=== PATIENT | female | born 1965 | race Caucasian/White ===

== ENCOUNTER 2022-09-15 15:33 | Emergency (ER) | payer MEDICARE ==
[~2022-09-15 15:33] MED LIST: AMIT75TA2 PO; QUET400T PO
[2022-09-15] MEDS ORDERED: LACTATED RINGERS 1,000 ML IV SCH ×2 (16:30→17:45)
[2022-09-15 16:32] LABS: BASOPHILS % (AUTO) 0 % (0-10); EOSINOPHILS % (AUTO) 0 % (0-10); HEMATOCRIT 42 % (35-52); HEMOGLOBIN 13.7 g/dL (11.5-16.0); LYMPHOCYTES # (AUTO) 2.6 10^3/uL (1.0-4.0); LYMPHOCYTES % (AUTO) 31 % (12-44); MEAN CORPUSCULAR HEMOGLOBIN 31 pg (25-34); MEAN CORPUSCULAR HGB CONC 32 g/dL (32-36); MEAN CORPUSCULAR VOLUME 97 fL (80-99); MONOCYTES # (AUTO) 0.8 10^3/uL (0.0-1.0); MONOCYTES % (AUTO) 9 % (0-12); NEUTROPHILS # (AUTO) 5.1 10^3/uL (1.8-7.8); NEUTROPHILS % (AUTO) 59 % (42-75); PLATELET COUNT 239 10^3/uL (130-400); WHITE BLOOD COUNT 8.6 10^3/uL (4.3-11.0)
--- NOTE | 2022-09-15 16:35 | ED General ---
General Chief Complaint: General Problems/Pain Stated Complaint: FALL Nursing Triage Note: PT TO [facility] BY [facility] WITH C/O FALL TODAY AND WEAKNESS FOR 2-3 DAYS. PT STATES HER LEGS ARE WEAK AND ARENT WORKING Source of Information: Patient Exam Limitations: No Limitations History of Present Illness Date Seen by Provider: Sep 15, 2022 Time Seen by Provider: 16:34 Initial Comments To ER by EMS from home with reports of a fall today. She is had increased weakness for 2 to 3 days but she has had general weakness in both lower extremities, falling with difficulty getting up off of the floor because of the weakness for about 6 months. She follows with ZOEY Cordoba, at [facility]. She has not addressed these issues with him. Timing/Duration: Getting Worse Severity: Moderate Associated Systoms: Denies Symptoms Allergies and Home Medications Allergies Coded Allergies: No Allergy Information Available (Unverified , 02/24/22) Patient Home Medication List Home Medication List Reviewed: Yes Amitriptyline HCl (Amitriptyline HCl) 75 Mg Tablet, 75 MG PO HS Prescribed by: SEFERINO DAVIS on 02/24/22 112 Quetiapine Fumarate (Seroquel) 400 Mg Tablet, 800 MG PO HS Prescribed by: SEFERINO DAVIS on 02/24/22 112 Review of Systems Review of Systems Constitutional: see HPI EENTM: see HPI Respiratory: no symptoms reported Cardiovascular: no symptoms reported Genitourinary: no symptoms reported Musculoskeletal: no symptoms reported Skin: no symptoms reported Psychiatric/Neurological: No Symptoms Reported Hematologic/Lymphatic: No Symptoms Reported Past Zhwdjic-Knzsxm-Pdofly Hx Patient Social History Tobacco Use?: Yes Tobacco type used: Cigarettes Substance use?: No Alcohol Use?: No Pt feels they are or have been: No Immunizations Up To Date Influenza Vaccine Up-to-Date: No; Not Current First/Initial COVID19 Vaccinat: 2020 Second COVID19 Vaccination Brandon: 2020 COVID19 Vaccine 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 oz. kg; 26.00 BMI Method: General Appearance: No Apparent Distress, WD/WN, Other (lethargic, difficulty keeping eyes open. ) Eyes: Bilateral Eye Normal Inspection, Bilateral Eye PERRL, Bilateral Eye EOMI HEENT: PERRL/EOMI, Other (Dry mucous membranes) Neck: Full Range of Motion, Normal Inspection Respiratory: No Accessory Muscle Use, No Respiratory Distress Cardiovascular: Regular Rate, Rhythm, Normal Peripheral Pulses Gastrointestinal: Normal Bowel Sounds, Non Tender, Soft Extremity: Normal Capillary Refill, Normal Inspection, Other (Bilateral lower extremities are without swelling, normal color, warm, +1 in strength dorsalis pedis pulse bilaterally.) Neurologic/Psychiatric: Alert, Oriented x3 Skin: Normal Color, Warm/Dry Progress/Results/Core Measures Suspected Sepsis SIRS Temperature: Pulse: 82 Respiratory Rate: 20 Laboratory Tests 09/15/22 16:13: White Blood Count 8.6 Blood Pressure 91 /72 Mean: 78 Laboratory Tests 09/15/22 16:13: Creatinine 0.76, Platelet Count 239, Total Bilirubin 0.2 Results/Orders Lab Results Laboratory Tests Test 09/15/22 16:13 Range/Units White Blood Count 8.6 4.3-11.0 10^3/uL Red Blood Count 4.38 3.80-5.11 10^6/uL Hemoglobin 13.7 11.5-16.0 g/dL Hematocrit 42 35-52 % Mean Corpuscular Volume 97 80-99 fL Mean Corpuscular Hemoglobin 31 25-34 pg Mean Corpuscular Hemoglobin Concent 32 32-36 g/dL Red Cell Distribution Width 13.4 10.0-14.5 % Platelet Count 239 130-400 10^3/uL Mean Platelet Volume 10.0 9.0-12.2 fL Immature Granulocyte % (Auto) 1 % Neutrophils (%) (Auto) 59 42-75 % Lymphocytes (%) (Auto) 31 12-44 % Monocytes (%) (Auto) 9 0-12 % Eosinophils (%) (Auto) 0 0-10 % Basophils (%) (Auto) 0 0-10 % Neutrophils # (Auto) 5.1 1.8-7.8 10^3/uL Lymphocytes # (Auto) 2.6 1.0-4.0 10^3/uL Monocytes # (Auto) 0.8 0.0-1.0 10^3/uL Eosinophils # (Auto) 0.0 0.0-0.3 10^3/uL Basophils # (Auto) 0.0 0.0-0.1 10^3/uL Immature Granulocyte # (Auto) 0.1 0.0-0.1 10^3/uL Sodium Level 136 135-145 MMOL/L Potassium Level 4.5 3.6-5.0 MMOL/L Chloride Level 103 98-107 MMOL/L Carbon Dioxide Level 24 21-32 MMOL/L Anion Gap 9 5-14 MMOL/L Blood Urea Nitrogen 15 7-18 MG/DL Creatinine 0.76 0.60-1.30 MG/DL Estimat Glomerular Filtration Rate 91 BUN/Creatinine Ratio 20 Glucose Level 118 H 70-105 MG/DL Calcium Level 8.6 8.5-10.1 MG/DL Corrected Calcium 8.9 8.5-10.1 MG/DL Total Bilirubin 0.2 0.1-1.0 MG/DL Aspartate Amino Transf (AST/SGOT) 20 5-34 U/L Alanine Aminotransferase (ALT/SGPT) 10 0-55 U/L Alkaline Phosphatase 71 40-136 U/L Total Protein 7.0 6.4-8.2 GM/DL Albumin 3.6 3.2-4.5 GM/DL My Orders Orders - BRIDGETT SENIOR APRN Cbc With Automated Diff (09/15/22 16:16) Comprehensive Metabolic Panel (09/15/22 16:16) Ua Culture If Indicated (09/15/22 16:16) Drug Screen Stat (Urine) (09/15/22 16:16) Ed Iv/Invasive Line Start (09/15/22 16:16) Ct Head/Cervical Spine Wo (09/15/22 16:16) Lactated Ringers (Lr 1000 Ml Iv Solution (09/15/22 16:30) Lactated Ringers (Lr 1000 Ml Iv Solution (09/15/22 17:45) Vital Signs/I&O 09/15/22 15:33 Temp 36.3 Pulse 82 Resp 20 B/P (MAP) 91/72 (78) Pulse Ox 94 Capillary Refill : Blood Pressure Mean: 78 Departure Communication (Admissions) 1723-lethargic, blood pressure 81/56. IV established, 1 L fluid bolus infusing. She complains of frequent falls. She is on a long list of medications most of which are sedating. I think this is a combination of hypotension from volume depletion with an extensive list of sedating medications contributing to her frequent falls and weakness. 1826-BP up to 112/76. Alert, will dc to home. Impression Primary Impression: Frequent falls Additional Impressions: Medication side effects Dehydration Disposition: HOME, SELF-CARE Condition: Stable Departure-Patient Inst. Decision time for Depature: 17:24 Referrals: NO,LOCAL PHYSICIAN (PCP/Family) Primary Care Physician Patient Instructions: Dehydration, Adult ED, Dealing with Low Blood Pressure from the Drugs You Take, Dealing with Drowsiness from the Drugs You Take Add. Discharge Instructions: 1. You need to follow-up with your primary care provider to discuss weaning back on the dosages of some of your medications as many if not all of them are sedating. Return to ER for any concerns. Increase water intake. All discharge instructions reviewed with patient and/or family. Voiced understanding. BRIDGETT SENIOR APRN Sep 15, 2022 16:35
[2022-09-15 16:37] LABS: ALBUMIN 3.6 GM/DL (3.2-4.5); POTASSIUM 4.5 MMOL/L (3.6-5.0)
[2022-09-15 16:39] LABS: CALCIUM 8.6 MG/DL (8.5-10.1)
[2022-09-15 16:42] LABS: BILIRUBIN,TOTAL 0.2 MG/DL (0.1-1.0)
[2022-09-15 16:44] LABS: CREATININE SERUM 0.76 MG/DL (0.60-1.30)
--- NOTE | 2022-09-15 17:00 | Diagnostic Imaging Report ---
PROCEDURE: CT head and CT cervical spine without contrast. TECHNIQUE: Multiple contiguous axial images were obtained through the brain and cervical spine without the use of intravenous contrast. Sagittal and coronal reformations through the cervical spine were then performed. Auto Exposure Controls were utilized during the CT exam to meet ALARA standards for radiation dose reduction. INDICATION: Head and neck pain after two falls today. Trauma to head. COMPARISON: None. FINDINGS: CT HEAD: The ventricles and cortical sulci are age appropriate. There is no midline shift or mass effect. No acute intracranial hemorrhage is seen. There is no CT evidence of acute territorial ischemia. The calvarium appears intact. Visualized paranasal sinuses are clear. CT CERVICAL SPINE: There is anterior fusion of the cervical spine from C4 to C7. There is bony fusion from C5 to C7 across the disc spaces, but there does not appear to be bony bridging across C4-C5. No hardware fracture or loosening is seen. There is grade 1 anterolisthesis at C7-T1, appears to be due to degenerative change. There are severe degenerative changes at C3-C4. There is marked facet arthropathy at C2-C3 and C3-C4 on the left. No acute fracture is seen. No bony fragments or hyperdense fluid collections are seen in the spinal canal. There does appear to be spinal canal stenosis at C4-C5. There are mild emphysematous changes in the lung apices. Soft tissues about the cervical spine demonstrate no acute abnormality. IMPRESSION: 1. No acute intracranial hemorrhage or calvarium fracture. 2. No acute fracture is seen in the cervical spine. 3. Anterior fusion of C4 to C7. No hardware loosening or fracture is seen. 4. Multilevel degenerative changes, most pronounced at C3-C4. Dictated by: Dictated on workstation # [id number]
[2022-09-15 18:27] VITALS: BP 112/77
[2022-09-15 18:33] LABS: BILIRUBIN,URINE NEGATIVE (NEGATIVE); CLARITY,URINE CLEAR; COLOR,URINE YELLOW; GLUCOSE, URINE (UA) NEGATIVE (NEGATIVE); KETONES,URINE NEGATIVE (NEGATIVE); LEUKOCYTE ESTERASE ,URINE NEGATIVE (NEGATIVE); NITRITE,URINE NEGATIVE (NEGATIVE); PH,URINE 6.5 (5-9); PROTEIN,URINE NEGATIVE (NEGATIVE)
[2022-09-15 18:42] LABS: BACTERIA,URINE NEGATIVE /HPF; SQUAMOUS EPITHELIAL CELL,UR RARE /HPF
[2022-09-15 18:50] LABS: AMPHETAMINE SCREEN, URINE NEGATIVE (NEGATIVE); BARBITURATE SCREEN URINE NEGATIVE (NEGATIVE); BENZODIAZEPINES SCREEN URINE NEGATIVE (NEGATIVE); CANNABINOID SCREEN, URINE NEGATIVE (NEGATIVE); COCAINE SCREEN URINE NEGATIVE (NEGATIVE); METHADONE STAT NEGATIVE (NEGATIVE); OPIATE SCREEN URINE NEGATIVE (NEGATIVE); OXYCODONE STAT NEGATIVE (NEGATIVE); PROPOXYPHENE STAT NEGATIVE (NEGATIVE); TRICYCLIC ANTIDEPRESSANTS SCRE POSITIVE (NEGATIVE)
== END 2022-09-15 18:30 | disposition home or self-care (01) ==
LOC: EDUNIT# 15:39 → ER 15:41
DX: E86.0 Dehydration (principal); T50.905A Adverse effect of unspecified drugs, medicaments and biological substances, initial encounter; R29.6 Repeated falls; F17.210 Nicotine dependence, cigarettes, uncomplicated; W19.XXXA Unspecified fall, initial encounter
CPT/HCPCS: 36415; 70450; 72125; 80053; 80306; 81000; 85025

== ENCOUNTER 2022-11-26 07:33 | Inpatient (IN) | payer MEDICARE, MEDICAID ==
[~2022-11-26] VITALS: Ht 167 cm; Wt 94.8 kg
[2022-11-26] MEDS ORDERED: LACTATED RINGERS 1,000 ML IV STA (08:01)
[2022-11-26] MEDS ORDERED: NS IV 1000 ML 1,000 ML IV STA (08:01)
[2022-11-26 08:09] LABS: ABG BASE EXCESS 4.7 MMOL/L (-2.5-2.5); ABG OXYGEN SATURATION 97 % (94-100); ABG PCO2 54 MMHG (35-45); ABG PH 7.36 (7.37-7.43); ABG PO2 79 MMHG (79-93); ABG TCO2 31.3 MMOL/L (21.0-31.0); ALLENS TEST POSITIVE; INSPIRED O2 4 L; PATIENT TEMP 37.3; VENTILATOR NO
--- NOTE | 2022-11-26 08:09 | ED General ---
General Chief Complaint: Altered Mental Status Stated Complaint: AMS Source of Information: Patient, EMS Exam Limitations: Physical Impairments History of Present Illness Date Seen by Provider: Nov 26, 2022 Time Seen by Provider: 07:34 Initial Comments Here by EMS with report of altered mental status. Apparently she was quite weak and not answering questions right this morning. EMS reports blood pressure that was low in the 80s systolic but then 100s systolic. Unsure if the patient has been sick. Reports that she does have dementia. The house smelled of marijuana per EMS. The patient smells of smoke. Patient is answering simple questions and following simple commands. She was noted to be hypoxic in the 80s which did improve with a few liters via nasal cannula per EMS. Patient denies chest pain or abdominal pain and will wake up. She has a's occasional jerking movements of the body. She seems quite confused. Family reports to EMS that she is on medicines but was only able to show a bottle of Seroquel. Timing/Duration: 1-3 Hours Severity: Moderate, Severe Associated Systoms: No Chest Pain, No Nausea/Vomiting, No Shortness of Air; Weakness Allergies and Home Medications Allergies Coded Allergies: No Known Drug Allergies (Unverified , 11/26/22) Patient Home Medication List Home Medication List Reviewed: Yes Amitriptyline HCl (Amitriptyline HCl) 75 Mg Tablet, 75 MG PO HS Prescribed by: SEFERINO DAVIS on 02/24/221121 Quetiapine Fumarate (Seroquel) 400 Mg Tablet, 800 MG PO HS Prescribed by: SEFERINO DAVIS on 02/24/221121 Review of Systems Review of Systems Constitutional: see HPI; No chills, No fever; weakness Unable to complete review of systems due to altered mental status Past Dypgstx-Paxaeb-Yiqrup Hx Patient Social History Tobacco Use?: Yes Substance use?: Unable to obtain Alcohol Use?: Unable to obtain Immunizations Up To Date First/Initial COVID19 Vaccinat: 2020 Second COVID19 Vaccination Brandon: 2020 Past Medical History Surgery/Hospitalization HX: PSYCHIATRIC HX, COPD, NEUROPATHY, CHRONIC PAIN Respiratory: Yes COPD Neurological: Yes Neuropathy Family Medical History Reviewed Nursing Family Hx No Pertinent Family Hx Physical Exam-Suspected Sepsis Physical Exam Vital Signs Vital Signs - First Documented 11/26/22 11:47 FiO2 36 Capillary Refill : Less Than 3 Seconds Height, Weight, BMI Height: '" Weight: lbs. oz. kg; 30.00 BMI Method: General Appearance: Mild Distress, Obese HEENT: Other (Pupils pinpoint at 2 to 3 mm bilateral, equal and sluggish) Neck: Full Range of Motion, Normal Inspection, Non Tender, Supple Respiratory: No Respiratory Distress, Crackles (Few bibasilar crackles.); No Wheezing Cardiovascular: Regular Rate, Rhythm, No Murmur Gastrointestinal: Normal Bowel Sounds, Non Tender, Soft Back: Normal Inspection, No CVA Tenderness Extremity: No Calf Tenderness, No Pedal Edema Neurologic/Psychiatric: Disoriented (Oriented to self,), Motor Weakness, Other (Altered and drowsy. Intermittent muscle twitching throughout the body) Skin: normal color, cool; No rash, No ulcerations Focused Exam Lactate Level 11/26/22 08:07: Lactic Acid Level 1.79 Lactic Acid Level Progress/Results/Core Measures Suspected Sepsis SIRS Temperature: Pulse: 96 Respiratory Rate: 30 Laboratory Tests 11/26/22 08:07: White Blood Count 14.0H Blood Pressure 107 /84 Mean: 92 11/26/22 08:07: Lactic Acid Level 1.79 Laboratory Tests 11/26/22 08:07: Creatinine 0.73, INR Comment 0.9, Platelet Count 237, Total Bilirubin 0.4 Results/Orders Lab Results Laboratory Tests Test 11/26/22 08:02 11/26/22 08:07 11/26/22 08:16 11/26/22 08:34 Range/Units Blood Gas Puncture Site RIGHT RADIAL Blood Gas Patient Temperature 37.3 Arterial Blood pH 7.36 L 7.37-7.43 Arterial Blood Partial Pressure CO2 54 H 35-45 MMHG Arterial Blood Partial Pressure O2 79 79-93 MMHG Arterial Blood HCO3 30 H 23-27 MMOL/L Arterial Blood Total CO2 31.3 H 21.0-31.0 MMOL/L Arterial Blood Oxygen Saturation 97 94-100 % Arterial Blood Base Excess 4.7 H -2.5-2.5 MMOL/L Shaq Test POSITIVE Blood Gas Ventilator Setting NO Blood Gas Inspired Oxygen 4 L White Blood Count 14.0 H 4.3-11.0 10^3/uL Red Blood Count 4.40 3.80-5.11 10^6/uL Hemoglobin 13.6 11.5-16.0 g/dL Hematocrit 41 35-52 % Mean Corpuscular Volume 94 80-99 fL Mean Corpuscular Hemoglobin 31 25-34 pg Mean Corpuscular Hemoglobin Concent 33 32-36 g/dL Red Cell Distribution Width 13.8 10.0-14.5 % Platelet Count 237 130-400 10^3/uL Mean Platelet Volume 9.7 9.0-12.2 fL Immature Granulocyte % (Auto) 1 % Neutrophils (%) (Auto) 82 H 42-75 % Lymphocytes (%) (Auto) 10 L 12-44 % Monocytes (%) (Auto) 8 0-12 % Eosinophils (%) (Auto) 0 0-10 % Basophils (%) (Auto) 0 0-10 % Neutrophils # (Auto) 11.5 H 1.8-7.8 10^3/uL Lymphocytes # (Auto) 1.3 1.0-4.0 10^3/uL Monocytes # (Auto) 1.1 H 0.0-1.0 10^3/uL Eosinophils # (Auto) 0.0 0.0-0.3 10^3/uL Basophils # (Auto) 0.1 0.0-0.1 10^3/uL Immature Granulocyte # (Auto) 0.1 0.0-0.1 10^3/uL Neutrophils % (Manual) 83 % Lymphocytes % (Manual) 11 % Monocytes % (Manual) 5 % Eosinophils % (Manual) 0 % Basophils % (Manual) 1 % Blood Morphology Comment NORMAL Prothrombin Time 13.1 12.2-14.7 SEC INR Comment 0.9 0.8-1.4 Activated Partial Thromboplast Time 29 24-35 SEC Sodium Level 136 135-145 MMOL/L Potassium Level 3.6 3.6-5.0 MMOL/L Chloride Level 98 98-107 MMOL/L Carbon Dioxide Level 28 21-32 MMOL/L Anion Gap 10 5-14 MMOL/L Blood Urea Nitrogen 13 7-18 MG/DL Creatinine 0.73 0.60-1.30 MG/DL Estimat Glomerular Filtration Rate 95 BUN/Creatinine Ratio 18 Glucose Level 109 H 70-105 MG/DL Lactic Acid Level 1.79 0.50-2.00 MMOL/L Calcium Level 9.4 8.5-10.1 MG/DL Corrected Calcium 9.6 8.5-10.1 MG/DL Total Bilirubin 0.4 0.1-1.0 MG/DL Aspartate Amino Transf (AST/SGOT) 21 5-34 U/L Alanine Aminotransferase (ALT/SGPT) 16 0-55 U/L Alkaline Phosphatase 88 40-136 U/L Total Protein 7.5 6.4-8.2 GM/DL Albumin 3.7 3.2-4.5 GM/DL Influenza Type A (RT-PCR) Not Detected Not Detecte Influenza Type B (RT-PCR) Not Detected Not Detecte SARS-CoV-2 RNA (RT-PCR) Not Detected Not Detecte Urine Color YELLOW Urine Clarity CLEAR Urine pH 6.0 5-9 Urine Specific [place] 1.025 H 1.016-1.022 Urine Protein TRACE H NEGATIVE Urine Glucose (UA) NEGATIVE NEGATIVE Urine Ketones TRACE H NEGATIVE Urine Nitrite NEGATIVE NEGATIVE Urine Bilirubin NEGATIVE NEGATIVE Urine Urobilinogen 1.0 < = 1.0 MG/DL Urine Leukocyte Esterase NEGATIVE NEGATIVE Urine RBC (Auto) TRACE-I H NEGATIVE Urine RBC NONE /HPF Urine WBC 2-5 /HPF Urine Squamous Epithelial Cells 0-2 /HPF Urine Crystals NONE /LPF Urine Bacteria TRACE /HPF Urine Casts PRESENT /LPF Urine Hyaline Casts RARE /LPF Urine Granular Casts RARE /LPF Urine Mucus NEGATIVE /LPF Urine Culture Indicated CULTURE PENDING Urine Opiates Screen NEGATIVE NEGATIVE Urine Oxycodone Screen NEGATIVE NEGATIVE Urine Methadone Screen NEGATIVE NEGATIVE Urine Propoxyphene Screen NEGATIVE NEGATIVE Urine Barbiturates Screen NEGATIVE NEGATIVE Ur Tricyclic Antidepressants Screen POSITIVE H NEGATIVE Urine Phencyclidine Screen NEGATIVE NEGATIVE Urine Amphetamines Screen NEGATIVE NEGATIVE Urine Methamphetamines Screen NEGATIVE NEGATIVE Urine Benzodiazepines Screen NEGATIVE NEGATIVE Urine Cocaine Screen NEGATIVE NEGATIVE Urine Cannabinoids Screen POSITIVE H NEGATIVE My Orders Orders - JORDAN FLETCHER MD Arterial Blood Gas (11/26/22 07:55) Cbc With Automated Diff (11/26/22 08:01) Comprehensive Metabolic Panel (11/26/22 08:01) Blood Culture (11/26/22 08:01) Sputum Culture (11/26/22 08:01) Urinalysis (11/26/22 08:01) Urine Culture (11/26/22 08:01) Protime With Inr (11/26/22 08:01) Partial Thromboplastin Time (11/26/22 08:01) Chest 1 View, Ap/Pa Only (11/26/22 08:01) Ed Iv/Invasive Line Start (11/26/22 08:01) Ed Iv/Invasive Line Start (11/26/22 08:01) Vital Signs Adult Sepsis Patie Q15M (11/26/22 08:01) O2 (11/26/22 08:01) Remove Rings In Anticipation O (11/26/22 08:01) Lactic Acid Analyzer (11/26/22 08:01) Influenza A And B By Pcr (11/26/22 08:01) Covid 19 Inhouse Test (11/26/22 08:01) Ns Iv 1000 Ml (Sodium Chloride 0.9%) (11/26/22 08:01) Lactated Ringers (Lr 1000 Ml Iv Solution (11/26/22 08:01) Manual Differential (11/26/22 08:07) Arterial Blood Draw - Obtain (11/26/22 08:02) Catheter(Urinary) Insert & Ass ,15 (11/26/22 08:30) Drug Screen Stat (Urine) (11/26/22 08:30) Ct Angio Chest W (R/O Pe) (11/26/22 09:04) Cefepime Injection (Maxipime Injection) (11/26/22 09:15) Iohexol Injection (Omnipaque 350 Mg/Ml 1 (11/26/22 09:15) Received Contrast (Hold Metformin- Contr (11/26/22 09:15) Ns (Ivpb) (Sodium Chloride 0.9% Ivpb Bag (11/26/22 09:15) Nicotine Patch (Nicoderm Patch) (11/26/22 10:45) Ns Iv 1000 Ml (Sodium Chloride 0.9%) (11/26/22 10:58) Lactated Ringers (Lr 1000 Ml Iv Solution (11/26/22 10:58) Medications Given in ED Current Medications Medications Dose Ordered Sig/Kalee Route Start Time Stop Time Status Last Admin Dose Admin Cefepime HCl 1000 mg/Sodium Chloride 50 ml @ 100 mls/hr ONCE ONCE IV 11/26/22 09:15 11/26/22 09:44 DC 11/26/22 10:09 100 MLS/HR Iohexol 100 ml ONCE ONCE IV 11/26/22 09:15 11/26/22 09:16 DC 11/26/22 09:13 77 ML Sodium Chloride 100 ml ONCE ONCE IV 11/26/22 09:15 11/26/22 09:16 DC 11/26/22 09:13 80 ML Vital Signs/I&O 11/26/22 11/26/22 11/26/22 11/26/22 07:35 07:35 07:35 11:22 Temp 37.3 Pulse 96 75 Resp 30 16 B/P (MAP) 107/84 (92) 98/74 Pulse Ox 91 92 94 O2 Delivery Nasal Cannula Nasal Cannula Nasal Cannula Room Air O2 Flow Rate 3.00 3.00 3.00 3.00 11/26/22 11/26/22 11:43 11:47 Temp 36.9 36.9 Pulse 74 96 Resp 18 B/P (MAP) 120/72 (88) Pulse Ox 94 92 O2 Delivery Nasal Cannula O2 Flow Rate 5.00 FiO2 36 Capillary Refill : Less Than 3 Seconds Progress Note : Progress Note Seen and evaluated. Very difficult IV access. I was able to place a 20-gauge to the left antecubital space via ultrasound guidance with good flush and return. We have initiated sepsis protocol including CBC, CMP, blood cultures, lactic acid, chest x-ray, UA and UDS. We will get COVID and influenza screen. ABG ordered. Oxygen initiated at 3 L via nasal cannula and was increased to 5 L. We will consider BiPAP for concerns for hypercarbia but we will await ABG and sick blood pressures low. 0815: ABG shows CO2 of 54. I do not believe she needs BiPAP at this point. We have initiated normal saline 1 L bolus as well as LR 1 L bolus ordered earlier. O2 saturations greater than 91% currently. Monitor patient. Differential includes pneumonia, viral infection, COPD exacerbation, UTI, toxins including narcotic overdose, electrolyte abnormality, thyroid dysfunction 0843: Further lab review shows pH on ABG at 7.36 (just slightly under normal), CBC shows elevated white count with left shift but normal hemoglobin. Chemistri es reviewed and show normal electrolytes and normal serum creatinine with normal LFTs. Coag panel is normal. Lactic acid is upper limits of normal. UA is essentially within normal limits with no indication of urinary tract infection. We are pending UDS as well as chest x-ray. Monitor patient. 0855: I have reviewed chest x-ray and there is concern for large right-sided lower lobe infiltrate on the chest x-ray on my interpretation. Patient's chemistry shows normal creatinine function. I have verified allergies. We will go ahead and get CT angiogram of the chest to rule out PE as well as better define the infiltrate. This was discussed with patient and family who agree. She is much more talkative now and conversive. She does admit to smoking. She is able to tell her medication history now. Fluids have done significant improvement as well as oxygen. Patient will require admission but we will reassess after CT angiogram. This was discussed with patient and family who agree. We will initiate cefepime 1 g IV now due to history of significant COPD and concerns for pneumonia. 1044: CT scan results reviewed. Patient does have bilateral pneumonia without PE. I did discuss the case with Dr. Cordon, primary care provider on-call for [facility]. We did review current data and findings as well as treatment. He accepts patient for admission to the hospital, inpatient status. He is requesting NicoDerm patch being ordered which I have done. We did discuss patient's long-term chronic pain medicine and she is on oxycodone 10 mg p.o. every 6 hours as needed pain. I discussed that with him and he is okay with me writing for that as well. Bridge orders written. Findings and concerns discussed with patient and family who agree with plan. Diagnostic Imaging Diagonstic Imaging: Xray Plain Films/CT/US/NM/MRI: chest Comments [facility]. [place], [place] NAME: JORGE ALVAREZ [facility] REC#: [id number] PT STATUS: REG ER : 1965 PHYSICIAN: JORDAN FLETCHER MD ADMIT DATE: 11/26/22/ER Draft Date of Exam:11/26/22 CHEST 1 VIEW, AP/PA ONLY INDICATION: Shortness of air. Altered mental status. COMPARISON: None. FINDINGS: A single frontal radiographic view of the chest was obtained and demonstrates moderate consolidative airspace disease within the right lower lung and more patchy airspace opacities of the right upper lung. The left lung is comparatively clear. No large effusion or pneumothorax is seen. The cardiac silhouette and pulmonary vasculature are within normal limits. The osseous structures show no gross acute abnormalities. IMPRESSION: Findings consistent with moderate right-sided infiltrate. Followup to resolution is advised. Dictated on workstation # [id number] Dict: 11/26/2254 Trans: 11/26/22 0858 MARK [id number] Interpreted by: EDMOND FINK MD Electronically signed by: Reviewed: Reviewed by Diagonstic Imaging: CT Plain Films/CT/US/NM/MRI: chest Comments [facility] [place] [place] NAME: JORGE ALVAREZ [facility] REC#: [id number] PT STATUS: REG ER : 1965 PHYSICIAN: JORDAN FLETCHER MD ADMIT DATE: 11/26/22/ER Signed Date of Exam:11/26/22 CT ANGIO CHEST W (R/O PE) INDICATION: Lethargy, hypoxia, and increased O2 demand. Pinpoint pupils are show to react. FINDINGS: The pulmonary arterial branches show no filling defect. No identifiable PE. The aorta is patent, nonaneurysmal, and nonacute. This patient has bilateral pneumonia, greater right. The infiltrates are largely groundglass in attenuation. Findings are consistent with a nonspecific infectious etiology. No pneumothorax. There are minute bilateral pleural effusions, nonloculated. No evidence for empyema or abscess. There are some scattered coronary artery atherosclerotic vascular calcifications. The visualized upper abdomen shows no free fluid, free air, or loculated fluid collection. IMPRESSION: Bilateral pneumonia with minute pleural effusions. No findings of PE or acute aortic pathology. Dictated by: Dictated on workstation # [id number] Dict: 11/26/2240 Trans: 11/26/2259 MARK [id number] Interpreted by: IQRA FAUST Electronically signed by: IQRA FAUST 11/26/2259 Reviewed: Reviewed by Critical Care Note Critical Care Start Time: 07:34 Total Time (minutes) 30 Departure Communication (Admissions) Time/Spoke to Admitting Phy: 10:40 Impression Primary Impression: Bilateral pneumonia Qualified Codes: J18.9 - Pneumonia, unspecified organism Additional Impression: Hypoxia Disposition: ADMITTED INPATIENT Condition: Stable Admissions Decision to Admit Reason: Admit from ER (General) Decision to Admit/Date: Nov 26, 2022 Time/Decision to Admit Time: 10:40 Departure-Patient Inst. Referrals: NO,LOCAL PHYSICIAN (PCP/Family) Primary Care Physician JORDAN FLETCHER MD Nov 26, 2022 08:09
[2022-11-26 08:10] LABS: BASOPHILS # (AUTO) 0.1 10^3/uL (0.0-0.1); BASOPHILS % (AUTO) 0 % (0-10); EOSINOPHILS % (AUTO) 0 % (0-10); HEMATOCRIT 41 % (35-52); HEMOGLOBIN 13.6 g/dL (11.5-16.0); LYMPHOCYTES # (AUTO) 1.3 10^3/uL (1.0-4.0); LYMPHOCYTES % (AUTO) 10 % (12-44); MEAN CORPUSCULAR HEMOGLOBIN 31 pg (25-34); MEAN CORPUSCULAR HGB CONC 33 g/dL (32-36); MEAN CORPUSCULAR VOLUME 94 fL (80-99); MEAN PLATELET VOLUME 9.7 fL (9.0-12.2); MONOCYTES # (AUTO) 1.1 10^3/uL (0.0-1.0); MONOCYTES % (AUTO) 8 % (0-12); NEUTROPHILS # (AUTO) 11.5 10^3/uL (1.8-7.8); NEUTROPHILS % (AUTO) 82 % (42-75); PLATELET COUNT 237 10^3/uL (130-400)
[2022-11-26 08:21] LABS: ALBUMIN 3.7 GM/DL (3.2-4.5); INR 0.9 (0.8-1.4); PROTHROMBIN TIME PATIENT 13.1 SEC (12.2-14.7)
[2022-11-26 08:22] LABS: POTASSIUM 3.6 MMOL/L (3.6-5.0)
[2022-11-26 08:23] LABS: CALCIUM 9.4 MG/DL (8.5-10.1)
[2022-11-26 08:23] LABS: BILIRUBIN,URINE NEGATIVE (NEGATIVE); CLARITY,URINE CLEAR; COLOR,URINE YELLOW; GLUCOSE, URINE (UA) NEGATIVE (NEGATIVE); KETONES,URINE TRACE (NEGATIVE); LEUKOCYTE ESTERASE ,URINE NEGATIVE (NEGATIVE); NITRITE,URINE NEGATIVE (NEGATIVE); PROTEIN,URINE TRACE (NEGATIVE)
[2022-11-26 08:24] LABS: TOTAL PROTEIN 7.5 GM/DL (6.4-8.2)
[2022-11-26 08:26] LABS: BILIRUBIN,TOTAL 0.4 MG/DL (0.1-1.0)
[2022-11-26 08:28] LABS: CREATININE SERUM 0.73 MG/DL (0.60-1.30)
[2022-11-26 08:32] LABS: BACTERIA,URINE TRACE /HPF; GRANULAR CASTS,URINE RARE /LPF; HYALINE CASTS, URINE RARE /LPF; SQUAMOUS EPITHELIAL CELL,UR 0-2 /HPF
[2022-11-26 08:39] LABS: BASOPHILS % (MANUAL) 1 %; EOSINOPHILS % (MANUAL) 0 %; LYMPHOCYTES % (MANUAL) 11 %; MONOCYTES % (MANUAL) 5 %; NEUTROPHILS % (MANUAL) 83 %; RBC MORPH NORMAL
[2022-11-26 08:49] LABS: AMPHETAMINE SCREEN, URINE NEGATIVE (NEGATIVE); BARBITURATE SCREEN URINE NEGATIVE (NEGATIVE); BENZODIAZEPINES SCREEN URINE NEGATIVE (NEGATIVE); CANNABINOID SCREEN, URINE POSITIVE (NEGATIVE); COCAINE SCREEN URINE NEGATIVE (NEGATIVE); METHADONE STAT NEGATIVE (NEGATIVE); OPIATE SCREEN URINE NEGATIVE (NEGATIVE); OXYCODONE STAT NEGATIVE (NEGATIVE); PROPOXYPHENE STAT NEGATIVE (NEGATIVE); TRICYCLIC ANTIDEPRESSANTS SCRE POSITIVE (NEGATIVE)
--- NOTE | 2022-11-26 08:58 | Diagnostic Imaging Report ---
INDICATION: Shortness of air. Altered mental status. COMPARISON: None. FINDINGS: A single frontal radiographic view of the chest was obtained and demonstrates moderate consolidative airspace disease within the right lower lung and more patchy airspace opacities of the right upper lung. The left lung is comparatively clear. No large effusion or pneumothorax is seen. The cardiac silhouette and pulmonary vasculature are within normal limits. The osseous structures show no gross acute abnormalities. IMPRESSION: Findings consistent with moderate right-sided infiltrate. Followup to resolution is advised. Dictated by: Dictated on workstation # [id number]
[2022-11-26] MEDS ORDERED: NS 100 ML (IVPB) BAG IV ONE (09:15)
[2022-11-26] MEDS ORDERED: HOLD METFORMIN - RECEIVED CONTRAST 20 ML VIAL IV SCH (09:15)
[2022-11-26] MEDS ORDERED: IOHEXOL 350 MG/ML 100 ML (OMNIPAQUE 350) VIAL IV ONE (09:15)
[2022-11-26] MEDS ORDERED: CEFEPIME INJECTION 1,000 MG in NS (IVPB) 50 ML IV ONE (09:15)
--- NOTE | 2022-11-26 09:48 | Diagnostic Imaging Report ---
INDICATION: Lethargy, hypoxia, and increased O2 demand. Pinpoint pupils are show to react. FINDINGS: The pulmonary arterial branches show no filling defect. No identifiable PE. The aorta is patent, nonaneurysmal, and nonacute. This patient has bilateral pneumonia, greater right. The infiltrates are largely groundglass in attenuation. Findings are consistent with a nonspecific infectious etiology. No pneumothorax. There are minute bilateral pleural effusions, nonloculated. No evidence for empyema or abscess. There are some scattered coronary artery atherosclerotic vascular calcifications. The visualized upper abdomen shows no free fluid, free air, or loculated fluid collection. IMPRESSION: Bilateral pneumonia with minute pleural effusions. No findings of PE or acute aortic pathology. Dictated by: Dictated on workstation # [id number]
[2022-11-26] MEDS ORDERED: NICOTINE 21 MG (NICODERM) PATCH TD ONE (10:45)
[2022-11-26] MEDS ORDERED: NS IV 1000 ML 1,000 ML ONE (10:58)
[2022-11-26] MEDS ORDERED: LACTATED RINGERS 1,000 ML IV ONE (10:58)
[2022-11-26 11:43] VITALS: BP 120/72
[2022-11-26 11:47] VITALS: BP 107/84
[2022-11-26] MEDS ORDERED: RT-ALBUTEROL/IPRATROPIUM 3 ML (DUONEB) VIAL INH ONE (12:00)
[2022-11-26] MEDS ORDERED: ONDANSETRON 4 MG/2 ML (SDV) Z0FRAN IV PRN (12:15)
[2022-11-26] MEDS: NS IV 1000 ML 1,000 ML IV SCH (12:27)
--- NOTE | 2022-11-26 13:07 | History & Physical-Hospitalist ---
History of Present Illness HPI/Chief Complaint Here by EMS with report of altered mental status. Apparently she was quite weak and not answering questions right this morning. EMS reports blood pressure that was low in the 80s systolic but then 100s systolic. Unsure if the patient has been sick. Reports that she does have dementia. The house smelled of marijuana per EMS. The patient smells of smoke. Patient is answering simple questions and following simple commands. She was noted to be hypoxic in the 80s which did improve with a few liters via nasal cannula per EMS. Patient denies chest pain or abdominal pain and will wake up. She has a's occasional jerking movements of the body. She seems quite confused. Family reports to EMS that she is on med icines but was only able to show a bottle of Seroquel. Patient was pleasant and alert just reporting fatigue. She denied chest pain reported purulent sputum production for the past several days without blood. She had some chills but did not report rigors. She reports no past history of pneumonia thinks she been feeling well up until about 3 days ago when she noted increased cough and apparent sputum production. No one else has been sick at home that she was aware of. She reports that she did have pulmonary function test done a year ago in [place] from her description sounded formal including DLCO for which she was told she had a touch of emphysema. She reports a approximate 67-vxaj-bhao smoking history. Date Seen 11/26/22 Time Seen by a Provider: 13:02 Attending Physician On license of [facility] PCP Admitting Physician: Jan Ivory MD Attending Physician: Jan Ivory MD Referring Physician Date of Admission Nov 26, 2022 at 10:42 Home Medications & Allergies Home Medications Reviewed patient Home Medication Reconciliation performed by pharmacy medication reconciliations nanotechnology technician and/or nursing. Patients Allergies have been reviewed. Allergies Allergies Coded Allergies No Known Drug Allergies (Unverified11/26/22) Past Coiqvly-Gktfcb-Hjdgeb Hx Patient Social History Tobacco Use?: Yes Tobacco type used: Cigarettes Smoking Status: Current Everyday Smoker Use of E-Cig and/or Vaping dev: No Substance use?: Unable to obtain Substance type: Marijuana Substance frequency: Couple times a week Alcohol Use?: Unable to obtain Pt feels they are or have been: No Immunizations Up To Date First/Initial COVID19 Vaccinat: 2020 Second COVID19 Vaccination Brandon: 2020 Tetanus Booster (TDap): More Than 5 Years Current Status Advance Directives: No Primary Language: Upper Sorbian Preferred Spoken Language: Upper Sorbian Past Medical History COPD Neuropathy Family Medical History Reviewed Nursing Family Hx No Pertinent Family Hx Review of Systems Constitutional: see HPI Physical Exam Physical Exam Vital Signs Vital Signs - First Documented 11/26/22 11:47 FiO2 36 Capillary Refill : Less Than 3 Seconds Height, Weight, BMI Height: '" Weight: lbs. oz. kg; 31.19 BMI Method: General Appearance: No Apparent Distress Respiratory: No Accessory Muscle Use, No Respiratory Distress, Other (Vesicular breath sounds with rales over the right mid and lower lung field area and to a lesser extent left lower lobe few scattered rhonchi no appreciated wheezing.) Cardiovascular: Regular Rate, Rhythm, No Edema, No Gallop, No JVD, No Murmur, Normal Peripheral Pulses Gastrointestinal: Normal Bowel Sounds, No Organomegaly, No Pulsatile Mass, Non Tender, Soft Extremity: Normal Inspection, Normal Range of Motion, Non Tender, No Pedal Edema Results Results/Procedures Labs Laboratory Tests 11/26/22 08:07 Patient resulted labs reviewed. Assessment/Plan Admission Diagnosis 1. Bilateral predominant lower lobe pneumonia right greater than left with sepsis not severe in an individual with underlying COPD. Cefepime has been initiated in the emergency room we will continue. Patient currently requiring 5 L of O2 does not appear to be in respiratory distress and at baseline does not wear oxygen. 2. Patient reports history of bipolar disorder we will resume Seroquel that she takes 800 mg at at bedtime. Patient currently reports remission with no depression issues. Admission Status: Inpatient Order (span 2 midnights) Reason for Inpatient Admission: See admission diagnosis JAN IVORY MD Nov 26, 2022 13:07
[2022-11-26] MEDS ORDERED: AMITRIPTYLINE 25 MG (ELAVIL) TAB PO PRN (13:15)
[2022-11-26] MEDS ORDERED: FLU QUADRIvalent (6 months+) 60 mcg/0.5 ml 2022-23 (Fluzone) IM ONE (14:00)
[2022-11-26] MEDS: RT-ALBUTEROL/IPRATROPIUM 3 ML (DUONEB) VIAL INH SCH ×3 (14:24→21:30)
[2022-11-26 15:37] VITALS: BP 128/72
[2022-11-26] MEDS ORDERED: RT-ALBUTEROL/IPRATROPIUM 3 ML (DUONEB) VIAL INH PRN (16:00)
[2022-11-26] MEDS: CEFEPIME INJECTION 1,000 MG in NS (IVPB) 50 ML IV SCH (17:27)
[2022-11-26 19:32] VITALS: BP 95/55
[2022-11-26] MEDS: QUEtiapine 200 MG (SEROquel) TAB IMMEDIATE RELEASE PO SCH (20:36)
[2022-11-26 23:21] VITALS: BP 94/53
[2022-11-27] MEDS: RT-ALBUTEROL/IPRATROPIUM 3 ML (DUONEB) VIAL INH SCH ×5 (01:55→18:23)
[2022-11-27] MEDS: NS IV 1000 ML 1,000 ML IV SCH ×2 (02:20→15:22)
[2022-11-27] MEDS: CEFEPIME INJECTION 1,000 MG in NS (IVPB) 50 ML IV SCH ×4 (02:20→21:07)
[2022-11-27 03:51] VITALS: BP 93/54
[2022-11-27 06:59] LABS: ALBUMIN 2.9 GM/DL (3.2-4.5); BILIRUBIN,DIRECT 0.2 MG/DL (0.0-0.3); BILIRUBIN,INDIRECT 0.3 MG/DL; BILIRUBIN,TOTAL 0.5 MG/DL (0.1-1.0); CALCIUM 8.3 MG/DL (8.5-10.1); CREATININE SERUM 0.54 MG/DL (0.60-1.30); POTASSIUM 3.3 MMOL/L (3.6-5.0); TOTAL PROTEIN 5.8 GM/DL (6.4-8.2)
[2022-11-27 07:16] VITALS: BP 102/70
[2022-11-27] MEDS: NICOTINE 21 MG (NICODERM) PATCH TD SCH (08:37)
[2022-11-27] MEDS: PATCH REMOVAL TP SCH (08:37)
[2022-11-27] MEDS ORDERED: KCL 10 MEQ TAB (MICRO K) PO ONE (09:45)
[2022-11-27] MEDS ORDERED: LORazepam INJ 2 MG/ML (ATIVAN) VIAL IVP PRN (09:45)
[2022-11-27] MEDS ORDERED: LORazepam 0.5 MG (ATIVAN) TABLET PO PRN (09:45)
[2022-11-27 11:19] VITALS: BP 116/78
--- NOTE | 2022-11-27 11:27 | Physical Therapy Evaluation ---
PT Evaluation-General Medical Diagnosis Admission Date Nov 26, 2022 at 10:42 Medical Diagnosis: bilateral pneumonia Onset Date: Nov 26, 2022 Therapy Diagnosis Therapy Diagnosis: debility/weakness Precautions Precautions/Isolations: Fall Prevention, Standard Precautions Referral Physician: Gato Reason for Referral: Evaluation/Treatment Medical History Pertinent Medical History: COPD, Dementia, Neuropathy, Smoking Current History EMS secondary to AMS and was found to be hypoxic Reviewed History: Yes Social History Home: Single Level Current Living Status: Spouse PT Steps Into Home: 2 Prior Prior Level of Function SCALE: Activities may be completed with or without assistive devices. 1-Nejzlilora-umavgpn completes the activity by him/herself with no assistance from a helper. 5-Set-up or Clean-up Assistance-helper sets up or cleans up; patient completes activity. [place] assists only prior to or following the activity. 4-Supervision or Touching Assistance-helper provides verbal cues and/or touching/steadying and/or contact guard assistance as patient completes activity. Assistance may be provided throughout the activity or intermittently. 3-Partial/Moderate Assistance-helper does LESS THAN HALF the effort. [place] lifts, holds or supports trunk or limbs, but provides less than half the effort. 2-Substantial/Maximal Assistance-helper does MORE THAN HALF the effort. [place] lifts or holds trunk or limbs and provides more than half the effort. 6-Ytjwkszcn-hrkoag does ALL the effort. Patient does none of the effort to complete the activity. Or, the assistance of 2 or more helpers is required for the patient to complete the activity. If activity was not attempted, code reason: 7-Patient Refused. 9-Not Applicable-not attempted and the patient did not perform the activity before the current illness, exacerbation or injury. 10-Not Attempted due to Environmental Limitations-(lack of equipment, weather restraints, etc.). 88-Not Attempted due to Medical Conditions or Safety Concerns. Bed Mobility: 6 Transfers (B,C,W/C): 6 Gait: 6 Stairs: 6 Indoor Mobility (Ambulation): Independent Stairs: Independent Prior Devices Use: None PT Evaluation-Current Subjective Patient agrees to PT. She reports fatigue due to being "bothered" all day. Objective Patient Orientation: Normal For Age Attachments: Oxygen, IV ROM/Strength ROM Lower Extremities bilateral LE WFL Strength Lower Extremities 4-/5 grossly bilateral LE all planes Integumentary/Posture Bowel Incontinence: No Bladder Incontinence: No Posture WFL Neuromuscular (Tone, Coordination, Reflexes) grossly intact with all Sensory Vision: Functional Hearing: Functional Transfers Roll Left to Right (QC): 6 Sit to Lying (QC): 6 Lying to Sitting/Side of Bed(Q: 6 Sit to Stand (QC): 4 Gait Mode of Locomotion: Walk Anticipated Mode of Locomotion: Walk Walk 10 feet (QC): 4 Walk 50 ft with 2 Turns(QC): 4 Walk 150 ft (QC): 4 Distance: 150' Gait Assistive Device: FWW Comments/Gait Description safe and functional with no deviation Balance Sitting Static: Normal Sitting Dynamic: Normal Standing Static: Normal Standing Dynamic: Normal Assessment/Needs Patient will be seen short term by skilled PT to address functional strength and mobility to ensure safe return to home with spouse. Rehab Potential: Fair Post Rehab Potential-Barriers: compliance PT Short Term Goals Short Term Goals Time Frame: Dec 02, 2022 Roll Left & Right: 6 Sit to lyin Lying to sitting on side of be: 6 Sit to stand: 6 Chair/pwg-yc-sazmc transfer: 6 Toilet transfer: 6 Walk 10 feet: 6 Walk 50 feet with two turns: 6 Walk 150 feet: 6 PT Plan Problem List Problem List: Activity Tolerance Treatment/Plan Treatment Plan: Continue Plan of Care Treatment Plan: Education, Functional Activity Esme, Functional Strength, Gait, Safety, Therapeutic Exercise, Transfers Treatment Duration: Dec 02, 2022 Frequency: 5 times per week Estimated Hrs Per Day: .25 hour per day Patient and/or Family Agrees t: Yes Discharge Recommendations Therapy Discharge Recommendati: Home & Family Time Time In: 1055 Time Out: 1109 DATE: Nov 27, 2022 Total Billed Treatment Time: 14 Total Billed Treatment 1 visit [facility] 14 min DEIDRE HARRISON PT Nov 27, 2022 11:27
[2022-11-27] MEDS ORDERED: BACL10TA PO ×2 (11:29)
[2022-11-27] MEDS ORDERED: OXYC10TA7 PO (11:29)
[2022-11-27] MEDS ORDERED: GABA-490 PO (11:29)
[2022-11-27] MEDS ORDERED: ASPI-1238 PO (11:29)
[2022-11-27] MEDS ORDERED: QUET400T13 PO (11:29)
[2022-11-27] MEDS ORDERED: ALBU18HF2 INH (11:29)
[2022-11-27] MEDS ORDERED: SIMV40TA25 PO (12:33)
--- NOTE | 2022-11-27 13:34 | Occupational Therapy Eval ---
OT Evaluation-General/PLF Medical Diagnosis Admission Date Nov 26, 2022 at 10:42 Medical Diagnosis: bilateral pneumonia Onset Date: Nov 26, 2022 Therapy Diagnosis Therapy Diagnosis: n/a Precautions Precautions/Isolations: Fall Prevention, Standard Precautions Referral Physician: Gato Dickson Reason: Evaluation/Treatment Medical History Pertinent Medical History: COPD, Dementia, Neuropathy, Smoking Additional Medical History COPD, neuropathy Current History EMS due to AMS, hypoxia in 80's Social History Home: Single Level Current Living Status: Spouse Steps Into Home: 2 ADL-Prior Level of Function SCALE: Activities may be completed with or without assistive devices. 3-Sykiwcieur-tdckaev completes the activity by him/herself with no assistance from a helper. 5-Set-up or Clean-up Assistance-helper sets up or cleans up; patient completes activity. [place] assists only prior to or following the activity. 4-Supervision or Touching Assistance-helper provides verbal cues and/or touching/steadying and/or contact guard assistance as patient completes activity. Assistance may be provided throughout the activity or intermittently. 3-Partial/Moderate Assistance-helper does LESS THAN HALF the effort. [place] lifts, holds or supports trunk or limbs, but provides less than half the effort. 2-Substantial/Maximal Assistance-helper does MORE THAN HALF the effort. [place] lifts or holds trunk or limbs and provides more than half the effort. 3-Bwjkowiea-ejview does ALL the effort. Patient does none of the effort to complete the activity. Or, the assistance of 2 or more helpers is required for the patient to complete the activity. If activity was not attempted, code reason: 7-Patient Refused. 9-Not Applicable-not attempted and the patient did not perform the activity before the current illness, exacerbation or injury. 10-Not Attempted due to Environmental Limitations-(lack of equipment, weather restraints, etc.). 88-Not Attempted due to Medical Conditions or Safety Concerns. ADL PLOF Comments Pt reports IND with ADLs and functional mobility, no AD. She recently got a SC Self Care: Independent Functional Cognition: Independent OT Current Status Subjective Pt in bed, agreeable to OT Tx. States she doesn't feel well today. Mental Status/Objective Patient Orientation: Person, Place, Situation Attachments: IV, Oxygen Current Hand Dominance: Right Upper Extremity ROM WFL ADL-Treatment Eating (QC): 6 On/Off Footwear (QC): 6 Toileting Hygiene (QC): 6 Other Treatments Pt in bed, donned footwear. Pt used FWW to transfer into bathroom and onto toilet, OT assisted only with managing lines. Pt completed toileting, then used FWW to return to bed. Sit to/from stand with FWW independent, IND supine to/from sit. Post tx, pt in bed, call light in reach and all needs met. Education OT Patient Education: Correct positioning, Energy conservation, Modified ADL techniques, Progress toward Goal/Update tx plan, Purpose of tx/functional activities, Rehab process Teaching Recipient: Patient Teaching Methods: Discussion Response to Teaching: Verbalize Understanding OT Feed Research Aide Goals Feed Research Aide Goals 1=Demonstrate adherence to instructed precautions during ADL tasks. 2=Patient will verbalize/demonstrate understanding of assistive devices/modifications for ADL. 3=Patient will improve strength/tolerance for activity to enable patient to perform ADL's. OT Education/Plan Problem List/Assessment Assessment: No Skilled OT Needs ID'd No skilled OT services indicated at this time. Pt is currently independent with ADLs and at her PLOF. D/c from OT at this time. Discharge Recommendations Plan/Recommendations: Discharge/Goals Met Treatment Plan/Plan of Care Patient would benefit from OT for education, treatment and training to promote independence in ADL's, mobility, safety and/or upper extremity function for ADL's. Plan of Care: ADL Retraining, Functional Mobility Treatment Duration: Nov 27, 2022 Frequency: 1 time per week (eval only) Estimated Hrs Per Day: .25 hour per day Agreement: Yes Rehab Potential: Fair Time Start Time: 13:15 Stop Time: 13:27 DATE: Nov 27, 2022 Total Time Billed (hr/min): 12 Billed Treatment Time 1, ALEYDA OCHOA OT Nov 27, 2022 13:34
[2022-11-27 15:20] VITALS: BP 103/66
--- NOTE | 2022-11-27 18:55 | Progress Note - Hospitalist ---
SYL GUSTAFSON 11/27/22 1855: Subjective HPI/CC On Admission Here by EMS with report of altered mental status. Apparently she was quite weak and not answering questions right this morning. EMS reports blood pressure that was low in the 80s systolic but then 100s systolic. Unsure if the patient has been sick. Reports that she does have dementia. The house smelled of marijuana per EMS. The patient smells of smoke. Patient is answering simple questions and following simple commands. She was noted to be hypoxic in the 80s which did improve with a few liters via nasal cannula per EMS. Patient denies chest pain or abdominal pain and will wake up. She has a's occasional jerking movements of the body. She seems quite confused. Family reports to EMS that she is on medicines but was only able to show a bottle of Seroquel. Patient was pleasant and alert just reporting fatigue. She denied chest pain reported purulent sputum production for the past several days without blood. She had some chills but did not report rigors. She reports no past history of pneumonia thinks she been feeling well up until about 3 days ago when she noted increased cough and apparent sputum production. No one else has been sick at home that she was aware of. She reports that she did have pulmonary function test done a year ago in [place] from her description sounded formal including DLCO for which she was told she had a touch of emphysema. She reports a approximate 54-nguu-nmzi smoking history. Subjective/Events-last exam 57 yo female with COPD, a 70 pack year smoking history, and self reported bipolar disorder and dementia admitted on 11/26 for bilateral pneumonia, hypotension and hypoxia after EMS picked her up from her home in response to her family's concerns that she was weak and incoherent. She notes a productive, non-bloody cough of 3 days duration prior to admission. At this time, she is alert and oriented though anxious and requesting more caffeine. She says her cough has improved sense yesterday and chest pain, pain with breathing, SOB, dizziness or GI disturbances. Focused Exam Lactate Level 11/26/22 08:07: Lactic Acid Level 1.79 Objective Exam Vital Signs Vital Signs Date Time Temp Pulse Resp B/P (MAP) Pulse Ox O2 Delivery O2 Flow Rate FiO2 11/27/22 18:23 94 Nasal Cannula 3.00 11/27/22 15:20 36.5 76 20 103/66 (78) 11/26/22 11:47 36 Capillary Refill : Less Than 3 Seconds General Appearance: Anxious Respiratory: Lungs Clear Cardiovascular: Regular Rate, Rhythm Gastrointestinal: Normal Bowel Sounds Neurologic/Psychiatric: Alert Results/Procedures Lab Laboratory Tests 11/27/22 05:20 Patient resulted labs reviewed. Radiology CTA: Bilateral pneumonia with minute pleural effusions. No findings of PE or acute aortic pathology. CRX: Findings consistent with moderate right-sided infiltrate. Assessment/Plan Assessment and Plan Assess & Plan/Chief Complaint 1. Bilateral pneumonia (R>L) / Sepsis - Cefepime 2. Hypoxia - resolved with 3L of O2 3. Hypotension - resolved 4. Hypokalemia - KCl 5. Anxiety (11/27) - Lorazepam 6. Bipolar disorder - Seroquel home dose (800 mg) 7. COPD - albuterol-ipratropium Plan: Remove indwelling catheter and increase ambulation. BECKY DE DIOS DO 11/27/225: Assessment/Plan Assessment and Plan Assess & Plan/Chief Complaint Assessment: Pneumonia Sepsis Hypoxia requiring oxygen Mental illness Dementia Plan: Maintain antibiotics of Cefepime Discontinue catheter PT and OT Home meds Supervisory-Addendum Brief Verification & Attestation Participated in pt care: history, MDM, physical Personally performed: exam, history, MDM, supervision of care Care discussed with: Medical Student Procedures: n/a Results interpretation: Verified all documentation Verification and Attestation of Medical Student E/M Service A medical student performed and documented this service in my presence. I reviewed and verified all information documented by the medical student and made modifications to such information, when appropriate. I personally performed the physical exam and medical decision making. Becky De Dios, Nov 27, 2022,21:54 SYL GUSTAFSON Nov 27, 2022 18:55 BECKY DE DIOS DO Nov 27, 2022 21:55
[2022-11-27 19:16] VITALS: BP 110/72
[2022-11-27] MEDS: QUEtiapine 200 MG (SEROquel) TAB IMMEDIATE RELEASE PO SCH (21:07)
[2022-11-27 23:23] VITALS: BP 115/70
[2022-11-28] VITALS (7 sets, daily range): BP systolic 100–120; BP diastolic 59–76
[2022-11-28] MEDS: RT-ALBUTEROL/IPRATROPIUM 3 ML (DUONEB) VIAL INH SCH ×6 (02:35→20:47)
[2022-11-28] MEDS: CEFEPIME INJECTION 1,000 MG in NS (IVPB) 50 ML IV SCH ×4 (04:49→21:30)
[2022-11-28] MEDS: KCL 10 MEQ TAB (MICRO K) PO SCH (06:46)
[2022-11-28 06:59] LABS: BASOPHILS % (AUTO) 0 % (0-10); EOSINOPHILS % (AUTO) 0 % (0-10); HEMATOCRIT 36 % (35-52); HEMOGLOBIN 11.7 g/dL (11.5-16.0); LYMPHOCYTES # (AUTO) 1.5 10^3/uL (1.0-4.0); LYMPHOCYTES % (AUTO) 19 % (12-44); MEAN CORPUSCULAR HEMOGLOBIN 31 pg (25-34); MEAN CORPUSCULAR HGB CONC 33 g/dL (32-36); MEAN CORPUSCULAR VOLUME 93 fL (80-99); MEAN PLATELET VOLUME 10.2 fL (9.0-12.2); MONOCYTES # (AUTO) 1.3 10^3/uL (0.0-1.0); MONOCYTES % (AUTO) 16 % (0-12); NEUTROPHILS % (AUTO) 63 % (42-75); PLATELET COUNT 232 10^3/uL (130-400); WHITE BLOOD COUNT 7.9 10^3/uL (4.3-11.0)
[2022-11-28 07:18] LABS: ALBUMIN 2.9 GM/DL (3.2-4.5); BILIRUBIN,TOTAL 0.4 MG/DL (0.1-1.0); CALCIUM 8.6 MG/DL (8.5-10.1); CREATININE SERUM 0.53 MG/DL (0.60-1.30); POTASSIUM 3.1 MMOL/L (3.6-5.0); TOTAL PROTEIN 5.9 GM/DL (6.4-8.2)
[2022-11-28] MEDS: PATCH REMOVAL TP SCH (08:28)
[2022-11-28] MEDS: NICOTINE 21 MG (NICODERM) PATCH TD SCH (08:28)
--- NOTE | 2022-11-28 10:09 | Physical Therapy Daily Note ---
PT Daily Note-Current Subjective Patient agrees to PT. Pain Section J - Health Conditions 1. Rarely or not at all 2. Occasionally 3. Frequently 4. Almost constantly 8. Unable to answer Pain Effect on Sleep: 1 Pain Interference with Therapy: 1 Pain Interference w/Day-to-Day: 1 Mental Status Patient Orientation: Person, Time, Situation Attachments: Oxygen, IV Transfers SCALE: Activities may be completed with or without assistive devices. 4-Cryhpchfeg-eqbhmms completes the activity by him/herself with no assistance from a helper. 5-Set-up or Clean-up Assistance-helper sets up or cleans up; patient completes activity. [place] assists only prior to or following the activity. 4-Supervision or Touching Assistance-helper provides verbal cues and/or touching/steadying and/or contact guard assistance as patient completes activity. Assistance may be provided throughout the activity or intermittently. 3-Partial/Moderate Assistance-helper does LESS THAN HALF the effort. [place] lifts, holds or supports trunk or limbs, but provides less than half the effort. 2-Substantial/Maximal Assistance-helper does MORE THAN HALF the effort. [place] lifts or holds trunk or limbs and provides more than half the effort. 9-Qpdmlaepu-badtwj does ALL the effort. Patient does none of the effort to complete the activity. Or, the assistance of 2 or more helpers is required for the patient to complete the activity. If activity was not attempted, code reason: 7-Patient Refused. 9-Not Applicable-not attempted and the patient did not perform the activity before the current illness, exacerbation or injury. 10-Not Attempted due to Environmental Limitations-(lack of equipment, weather restraints, etc.). 88-Not Attempted due to Medical Conditions or Safety Concerns. Sit to Lying (QC): 6 Lying to Sitting/Side of Bed(Q: 6 Sit to Stand (QC): 6 Toilet Transfer (QC): 6 Gait Training Distance: 150' in room Walk 10 feet (QC): 6 Walk 50 ft with 2 Turns(QC): 6 Walk 150 ft (QC): 6 Gait Assistive Device: None trunk flexed posture/no deviation Assessment Patient is currently at independent PLOF with all gross motor skills safely and does not require continued skilled therapy. PT Short Term Goals Short Term Goals Time Frame: Dec 02, 2022 Roll Left & Right: 6 Sit to lyin Lying to sitting on side of be: 6 Sit to stand: 6 Chair/lcp-wa-dgnao transfer: 6 Toilet transfer: 6 Walk 10 feet: 6 Walk 50 feet with two turns: 6 Walk 150 feet: 6 PT Plan Treatment/Plan Treatment Plan: Discontinue PT, goals met Treatment Plan: Education, Functional Activity Esme, Functional Strength, Gait, Safety, Therapeutic Exercise, Transfers Treatment Duration: Dec 02, 2022 Frequency: 5 times per week Estimated Hrs Per Day: .25 hour per day Patient and/or Family Agrees t: Yes Time Time In: 853 Time Out: 903 DATE: Nov 28, 2022 Total Billed Treatment Time: 10 Total Billed Treatment 1 visit [facility] 10 min DEIDRE HARRISON PT Nov 28, 2022 10:09
--- NOTE | 2022-11-28 10:54 | Progress Note - Hospitalist ---
SYL GUSTAFSON 11/28/22 1054: Subjective HPI/CC On Admission Date Seen by Provider: Nov 28, 2022 Here by EMS with report of altered mental status. Apparently she was quite weak and not answering questions right this morning. EMS reports blood pressure that was low in the 80s systolic but then 100s systolic. Unsure if the patient has been sick. Reports that she does have dementia. The house smelled of marijuana per EMS. The patient smells of smoke. Patient is answering simple questions and following simple commands. She was noted to be hypoxic in the 80s which did improve with a few liters via nasal cannula per EMS. Patient denies chest pain or abdominal pain and will wake up. She has a's occasional jerking movements of the body. She seems quite confused. Family reports to EMS that she is on medicines but was only able to show a bottle of Seroquel. Patient was pleasant and alert just reporting fatigue. She denied chest pain reported purulent sputum production for the past several days without blood. She had some chills but did not report rigors. She reports no past history of pneumonia thinks she been feeling well up until about 3 days ago when she noted increased cough and apparent sputum production. No one else has been sick at home that she was aware of. She reports that she did have pulmonary function test done a year ago in [place] from her description sounded formal including DLCO for which she was told she had a touch of emphysema. She reports a approximate [id number] smoking history. Subjective/Events-last exam 57 yo female with COPD, a 70 pack year smoking history, and self reported bipolar disorder and dementia admitted on 11/26 for bilateral pneumonia, hypotension and hypoxia after EMS picked her up from her home in response to her family's concerns that she was weak and incoherent. She notes a productive, non- bloody cough of 3 days duration prior to admission. Today her spirits are improved and anxiety is far more controlled; though she does note significant fatigue. She admits to SOB with ambulation and a productive cough but says both continue to improve daily. Otherwise, she denies chest pain, pleuritic pain and dizziness.. Focused Exam Lactate Level 11/26/22 08:07: Lactic Acid Level 1.79 Objective Exam Vital Signs Vital Signs Date Time Temp Pulse Resp B/P (MAP) Pulse Ox O2 Delivery O2 Flow Rate FiO2 11/28/22 11:11 36.4 78 18 108/72 (84) 89 Room Air 11/28/22 10:16 3.00 11/26/22 11:47 36 Capillary Refill : Less Than 3 Seconds Respiratory: No Accessory Muscle Use, No Respiratory Distress, Rales (R > L) Cardiovascular: Regular Rate, Rhythm Gastrointestinal: Normal Bowel Sounds Neurologic/Psychiatric: Alert, Oriented x3 Results/Procedures Lab Laboratory Tests 11/28/22 05:30 Patient resulted labs reviewed. Assessment/Plan Assessment and Plan Assess & Plan/Chief Complaint 1. Bilateral pneumonia (R>L) / Sepsis - Cefepime maintained. gram positive cocci on 11/22 cultures noted on 11/26. 2. Hypoxia - 91% on 3L of O2. 3. Hypotension - resolved 4. Hypokalemia - K still trending down (3.1 today). KCl maintained. 5. Anxiety (11/27) - Lorazepam 6. Bipolar disorder - Seroquel home dose (800 mg) 7. COPD - albuterol-ipratropium Plan: Ambulate. PT evaluation ordered. BECKY DE DIOS DO 11/29/22 0515: Subjective HPI/CC On Admission Time Seen by Provider: 10:00 Subjective/Events-last exam Pt is doing better Discharge is planned for tomorrow Ambulate Hep lock IV fluid Wean O2 Review of Systems General: Fatigue, Malaise Pulmonary: Dyspnea Objective Exam General Appearance: No Apparent Distress, WD/WN, Chronically ill Respiratory: Lungs Clear, Normal Breath Sounds Cardiovascular: Regular Rate, Rhythm Assessment/Plan Assessment and Plan Assess & Plan/Chief Complaint dc tomorrow Supervisory-Addendum Brief Verification & Attestation Participated in pt care: history, MDM, physical Personally performed: exam, history, MDM, supervision of care Care discussed with: Medical Student Procedures: n/a Results interpretation: Verified all documentation Verification and Attestation of Medical Student E/M Service A medical student performed and documented this service in my presence. I reviewed and verified all information documented by the medical student and made modifications to such information, when appropriate. I personally performed the physical exam and medical decision making. Becky De Dios, Nov 29, 2022,05:15 SYL GUSTAFSON Nov 28, 2022 10:54 BECKY DE DIOS DO Nov 29, 2022 05:15
[2022-11-28] MEDS: QUEtiapine 200 MG (SEROquel) TAB IMMEDIATE RELEASE PO SCH (19:56)
[2022-11-29 03:15] VITALS: BP 120/69
[2022-11-29] MEDS: RT-ALBUTEROL/IPRATROPIUM 3 ML (DUONEB) VIAL INH SCH ×3 (03:26→14:19)
[2022-11-29] MEDS: CEFEPIME INJECTION 1,000 MG in NS (IVPB) 50 ML IV SCH ×2 (03:36→09:00)
[2022-11-29 05:22] LABS: BASOPHILS % (AUTO) 0 % (0-10); EOSINOPHILS % (AUTO) 0 % (0-10); HEMATOCRIT 34 % (35-52); HEMOGLOBIN 11.1 g/dL (11.5-16.0); LYMPHOCYTES # (AUTO) 1.9 10^3/uL (1.0-4.0); LYMPHOCYTES % (AUTO) 20 % (12-44); MEAN CORPUSCULAR HEMOGLOBIN 30 pg (25-34); MEAN CORPUSCULAR HGB CONC 33 g/dL (32-36); MEAN CORPUSCULAR VOLUME 93 fL (80-99); MEAN PLATELET VOLUME 9.7 fL (9.0-12.2); MONOCYTES # (AUTO) 1.3 10^3/uL (0.0-1.0); MONOCYTES % (AUTO) 13 % (0-12); NEUTROPHILS # (AUTO) 6.2 10^3/uL (1.8-7.8); NEUTROPHILS % (AUTO) 64 % (42-75); PLATELET COUNT 245 10^3/uL (130-400); WHITE BLOOD COUNT 9.6 10^3/uL (4.3-11.0)
[2022-11-29] MEDS: KCL 10 MEQ TAB (MICRO K) PO SCH (05:43)
[2022-11-29 05:57] LABS: ALBUMIN 2.8 GM/DL (3.2-4.5); BILIRUBIN,TOTAL 0.3 MG/DL (0.1-1.0); CALCIUM 8.6 MG/DL (8.5-10.1); CREATININE SERUM 0.53 MG/DL (0.60-1.30); POTASSIUM 3.2 MMOL/L (3.6-5.0); TOTAL PROTEIN 5.6 GM/DL (6.4-8.2)
[2022-11-29 07:11] VITALS: BP 113/77
[2022-11-29] MEDS ORDERED: KCL 20 MEQ TAB (K-DUR) PO SCH (08:00)
[2022-11-29] MEDS: PATCH REMOVAL TP SCH (08:59)
[2022-11-29] MEDS: NICOTINE 21 MG (NICODERM) PATCH TD SCH (08:59)
[2022-11-29] MEDS ORDERED: POTA10CA43 PO (10:56)
[2022-11-29] MEDS ORDERED: CEFD300C3 PO (10:56)
--- NOTE | 2022-11-29 10:57 | Discharge Summary ---
Discharge Summary Hospital Course Was the Problem List Reviewed?: Yes Problems/Dx: (1) Bilateral pneumonia Status: Acute Qualifiers: Qualified Codes: J18.9 - Pneumonia, unspecified organism (2) Hypoxia Status: Acute Hospital Course Date of Admission: Nov 26, 2022 at 10:42 Admission Diagnosis : Family Physician/Provider: No,Local Physician Date of Discharge: 11/29/22 Discharge Diagnosis: [ ] Hospital Course: 57 yo female with COPD (not oxygen dependent), a 70 pack year smoking history, and self reported bipolar disorder and dementia admitted on 11/26 at 735 hrs from the ER for bilateral pneumonia (R > L, lower lobe predominant) with sepsis, hypotension and hypoxia after EMS picked her up from her home in response to her family's concerns that she was weak and incoherent. At the time of admission she reported a 3-day history of purulent, non-bloody cough; IV fluids, supplemental oxygen 5L NC, and albuterol-ipratropium were started and Cefepime was continued from the ER. Oxygen was weaned to 3L the same day; she was maintained on 2-3L thereafter. She had intermittent hypotension (lowest 93/94) in the following 24 hrs; after 11/27 at 716 hrs her blood pressure remained stable. In addition, between 11/27 -11/27 her leukocytosis resolved thereby correcting her sepsis status. On 11/27, hypokalemia was noted and the patient appeared anxious and mildly irritable on exam; KCl, home Seroquel 800 mg, and Lorazepam were started, her indwelling catheter was removed, and orders for PT and OT were placed. Thereafter her disposition improved; she admitted exertional SOB and a productive cough daily but denied discomfort, chest pain, or pleuritic pain. She will be discharged on 11/29 with with KCl, Cefdinir and home oxygen according to ambulatory oxygen assessment. Labs and Pending Lab Test: Laboratory Tests 11/29/22 05:00: White Blood Count 9.6, Red Blood Count 3.66L, Hemoglobin 11.1L, Hematocrit 34L, Mean Corpuscular Volume 93, Mean Corpuscular Hemoglobin 30, Mean Corpuscular Hemoglobin Concent 33, Red Cell Distribution Width 13.9, Platelet Count 245, Mean Platelet Volume 9.7, Immature Granulocyte % (Auto) 2, Neutrophils (%) (Auto) 64, Lymphocytes (%) (Auto) 20, Monocytes (%) (Auto) 13H, Eosinophils (%) (Auto) 0, Basophils (%) (Auto) 0, Neutrophils # (Auto) 6.2, Lymphocytes # (Auto) 1.9, Monocytes # (Auto) 1.3H, Eosinophils # (Auto) 0.0, Basophils # (Auto) 0.0, Immature Granulocyte # (Auto) 0.2H, Sodium Level 138, Potassium Level 3.2L, Chloride Level 103, Carbon Dioxide Level 26, Anion Gap 9, Blood Urea Nitrogen 7, Creatinine 0.53L, Estimat Glomerular Filtration Rate 107, BUN/Creatinine Ratio 13, Glucose Level 104, Calcium Level 8.6, Corrected Calcium 9.6, Total Bilirubin 0.3, Aspartate Amino Transf (AST/SGOT) 11, Alanine Aminotransferase (ALT/SGPT) 9, Alkaline Phosphatase 75, Total Protein 5.6L, Albumin 2.8L Microbiology 11/26/22 Urine Culture - Final, Complete Lactobacillus species See Comments 11/26/22 Blood Culture - Preliminary, Resulted Staphylococcus epidermidis Home Meds Active Potassium Chloride 10 Meq Capsule.er 10 Meq PO DAILY Cefdinir 300 Mg Capsule 300 Mg PO BID Reported Simvastatin 40 Mg Tablet 40 Mg PO DAILY LAST FILLED 03-02-2022 #100/100 DAY SUPPLY Aspirin EC (Aspirin) 81 Mg Tablet.dr 81 Mg PO DAILY Quetiapine Fumarate 400 Mg Tablet 800 Mg PO HS TAKES 2 (400MG) TABS Gabapentin 400 Mg Capsule 400 Mg PO TID Baclofen 10 Mg Tablet 10 Mg PO DAILY PRN Baclofen 10 Mg Tablet 10 Mg PO HS Ventolin Hfa (Albuterol Sulfate) 90 Mcg Hfa.aer.ad 2 Puff INH Q4H PRN Oxycodone HCl 10 Mg Tablet 10 Mg PO Q6H PRN Assessment/Pt Instructions pcp 1 week Discharge Planning: <30 minutes discharge planning Discharge Instructions Discharge Diet: No Restrictions Discharge Physical Examination Vital Signs Vital Signs Date Time Temp Pulse Resp B/P (MAP) Pulse Ox O2 Delivery O2 Flow Rate FiO2 11/29/22 07:24 94 Nasal Cannula 3.00 11/29/22 07:11 36.8 75 20 113/77 (89) 11/26/22 11:47 36 General Appearance: No Apparent Distress, WD/WN, Chronically ill Respiratory: Lungs Clear, Normal Breath Sounds Allergies: Coded Allergies: No Known Drug Allergies (Unverified , 11/26/22) Discharge Summary Date of Admission Nov 26, 2022 at 10:42 Date of Discharge Discharge Date: Nov 29, 2022 Admission Diagnosis 1. Bilateral predominant lower lobe pneumonia right greater than left with sepsis not severe in an individual with underlying COPD. Cefepime has been initiated in the emergency room we will continue. Patient currently requiring 5 L of O2 does not appear to be in respiratory distress and at baseline does not wear oxygen. 2. Patient reports history of bipolar disorder we will resume Seroquel that she takes 800 mg at at bedtime. Patient currently reports remission with no depression issues. Discharge Diagnosis dc tomorrow EZ DE DIOS DO Nov 29, 2022 10:57
[2022-11-29 11:05] VITALS: BP 113/77
--- NOTE | 2022-11-29 14:04 | Progress Note ---
ROHITSYL LUCIA 11/29/22 1404: Progress Note 57 yo female with COPD (not oxygen dependent), a 70 pack year smoking history, and self reported bipolar disorder and dementia admitted on 11/26 at 735 hrs from the ER for bilateral pneumonia (R > L, lower lobe predominant) with sepsis, hypotension and hypoxia after EMS picked her up from her home in response to her family's concerns that she was weak and incoherent. At the time of admission she reported a 3-day history of purulent, non-bloody cough; IV fluids, supplemental oxygen 5L NC, and albuterol-ipratropium were started and Cefepime was continued from the ER. Oxygen was weaned to 3L the same day; she was maintained on 2-3L thereafter. She had intermittent hypotension (lowest 93/94) in the following 24 hrs; after 11/27 at 716 hrs her blood pressure remained stable. In addition, between 11/27 -11/27 her leukocytosis resolved thereby correcting her sepsis status. On 11/27, hypokalemia was noted and the patient appeared anxious and mildly irrita ble on exam; KCl, home Seroquel 800 mg, and Lorazepam were started, her indwelling catheter was removed, and orders for PT and OT were placed. Thereafter her disposition improved; she admitted exertional SOB and a productive cough daily but denied discomfort, chest pain, or pleuritic pain. She will be discharged on 11/29 with with KCl, Cefdinir and home oxygen according to ambulatory oxygen assessment. BECKY DE DIOS DO 11/29/22 2019: Supervisory-Addendum Brief Verification & Attestation Participated in pt care: history, MDM, physical Personally performed: exam, history, MDM, supervision of care Care discussed with: Medical Student Procedures: n/a Results interpretation: Verified all documentation Verification and Attestation of Medical Student E/M Service A medical student performed and documented this service in my presence. I reviewed and verified all information documented by the medical student and made modifications to such information, when appropriate. I personally performed the physical exam and medical decision making. Becky De Dios Nov 29, 2022,20:19 SJSYL Nov 29, 2022 14:04 BECKY DE DIOS DO Nov 29, 2022 20:19
[2022-11-29 14:10] VITALS: BP 113/77
== END 2022-11-29 14:10 | disposition home or self-care (01) | DRG 871 ==
LOC: EDUNIT# 07:33 → ER 07:35 → 4TH 10:42
PROVIDERS: ADMIT Internal Medicine; ATTEND Internal Medicine
DX: A41.9 Sepsis, unspecified organism (principal); J18.9 Pneumonia, unspecified organism; J44.0 Chronic obstructive pulmonary disease with (acute) lower respiratory infection; R09.02 Hypoxemia; F03.90 Unspecified dementia, unspecified severity, without behavioral disturbance, psychotic disturbance, mood disturbance, and anxiety; G62.9 Polyneuropathy, unspecified; E87.6 Hypokalemia; F17.210 Nicotine dependence, cigarettes, uncomplicated; F12.90 Cannabis use, unspecified, uncomplicated; Z20.822 Contact with and (suspected) exposure to COVID-19; F31.9 Bipolar disorder, unspecified
CPT/HCPCS: 36415; 36600; 51702; 71045; 71275; 80048; 80053; 80076; 80306; 81000; 82805; 83605; 85007; 85025; 85027; 85610; 85730; 87040; 87077; 87088; 87636; 94640; 94760; 94761

== ENCOUNTER 2023-01-16 10:13 | Observation (INO) | payer MEDICARE, MEDICAID ==
[~2023-01-16] VITALS: Ht 154.9 cm; Wt 93.7 kg
[~2023-01-16 10:13] MED LIST changes: +ALBU18HF2 INH; +ASPI-1238 PO; +BACL10TA PO; +CEFD300C3 PO; +GABA-490 PO; +OXYC10TA7 PO; +POTA10CA44 PO; +QUET400T13 PO; +SIMV40TA25 PO
[2023-01-16] MEDS ORDERED: ASPIRIN 81 MG CHEW (CHILDREN'S ASA) PO ONE (10:30)
--- NOTE | 2023-01-16 10:55 | Diagnostic Imaging Report ---
INDICATION: Chest pain COMPARISON: 11/26/2022 TECHNIQUE: Single radiograph of the chest dated January 16, 2023. FINDINGS: The cardiac silhouette is within normal limits in size. No significant pulmonary vascular congestion. Significant apex right curvature of the spine is again noted with postsurgical changes noted within the upper cervicothoracic spine. Previously identified extensive opacities within the right mid lower lung have improved. Minimal persisting bibasilar interstitial opacities are identified. No significant pleural effusion or pneumothorax. No acute osseous abnormality. IMPRESSION: Minimal bibasilar atelectasis and/or pneumonitis. Interval clearance of previously noted infiltrate within the right mid and lower lung noted on the prior radiograph. Scoliosis. Dictated by: Dictated on workstation # [id number]
[2023-01-16 11:04] LABS: ALBUMIN 3.8 GM/DL (3.2-4.5); CHLORIDE 106 MMOL/L (98-107); SODIUM 139 MMOL/L (135-145)
[2023-01-16 11:05] LABS: AMYLASE 26 U/L (25-125); CALCIUM 8.9 MG/DL (8.5-10.1)
[2023-01-16 11:06] LABS: GLUCOSE 91 MG/DL (70-105); TOTAL PROTEIN 7.6 GM/DL (6.4-8.2)
--- NOTE | 2023-01-16 11:06 | ED Cough/URI ---
General Chief Complaint: Respiratory Problems Stated Complaint: COUGH | CONGESTION | BODY ACHES Nursing Triage Note: amb to room 10 upon arriva patient is 87% on room air. patient states she feels like she did when she had pneumonia in november. sx are SOB, coughing, chest pain radiating through to her back between the shoulder blades. Source: patient History of Present Illness Date Seen by Provider: Jan 16, 2023 Time Seen by Provider: 10:20 Initial Comments PT ARRIVES VIA POV FROM HOME PT STATES SHE HAS BEEN ILL FOR THE LAST 3 DAYS WITH: -PRODUCTIVE COUGH WITH COLORED SPUTUM -SHORTNESS OF BREATH -CHEST PAIN--CENTER OF CHEST, RADIATING INTO HER UPPER BACK BETWEEN SHOULDER BLADES. WORSE WITH COUGHING AND TAKING A DEEP BREATH -SUBJECTIVE FEVER, SWEATS, CHILLS -BODY ACHES NO HEADACHE NO GI SYMPTOMS PT HAS COPD AND HAS AN ALBUTEROL INHALER AT HOME ( NO SPACER)-- STATES SHE HAS BEEN USING IT EVERY 10 -15 MINUTES FOR THE LAST 12 HOURS, AND BEFORE THAT SHE HAS BEEN USING IT EVERY 1-2 HOURS FOR THE LAST 3 DAYS. STATES IT IS NOT HELPING. HAS GONE THROUGH ALMOST THE ENTIRE INHALER IN THE LAST 24 HOURS. SHE DOES NOT HAVE HOME O2 SHE HAD PNEUMONIA IN NOVEMBER AND THIS FEELS THE SAME. SHE CONTINUES TO SMOKE 2 PPD, DENIES ETOH USE, DOES SMOKE MARIJUANA ON REGULAR BASIS. [facility] Allergies and Home Medications Allergies Coded Allergies: No Known Drug Allergies (Unverified , 11/26/22) Patient Home Medication List Albuterol Sulfate (Ventolin Hfa) 90 Mcg Hfa.aer.ad, 2 PUFF INH Q4H PRN for SHORT NESS OF BREATH, (Reported) Entered as Reported by: HAZEL AGOSTO on 11/27/22 112 Aspirin (Aspirin EC) 81 Mg Tablet.dr, 81 MG PO DAILY, (Reported) Entered as Reported by: HAZEL AGOSTO on 11/27/22 1129 Baclofen (Baclofen) 10 Mg Tablet, 10 MG PO HS, (Reported) Entered as Reported by: HAZEL AGOSTO on 11/27/22 112 Baclofen (Baclofen) 10 Mg Tablet, 10 MG PO DAILY PRN for MUSCLE SPASMS, (Reported) Entered as Reported by: HAZEL AGOSTO on 11/27/22 1129 Cefdinir (Cefdinir) 300 Mg Capsule, 300 MG PO BID Prescribed by: EZ DE DIOS on 11/29/22 1056 Gabapentin (Gabapentin) 400 Mg Capsule, 400 MG PO TID, (Reported) Entered as Reported by: HAZEL AGOSTO on 11/27/22 1129 Oxycodone HCl (Oxycodone HCl) 10 Mg Tablet, 10 MG PO Q6H PRN for PAIN-SEVERE (8- 10), (Reported) Entered as Reported by: HAZEL AGOSTO on 11/27/22 1129 Potassium Chloride (Potassium Chloride) 10 Meq Capsule.er, 10 MEQ PO DAILY Prescribed by: EZ DE DIOS on 11/29/22 1056 Quetiapine Fumarate (Quetiapine Fumarate) 400 Mg Tablet, 800 MG PO HS, (Reported) Entered as Reported by: HAZEL AGOSTO on 11/27/22 1129 Simvastatin (Simvastatin) 40 Mg Tablet, 40 MG PO DAILY, (Reported) Entered as Reported by: HAZEL AGOSTO on 11/27/22 1233 Review of Systems Review of Systems Constitutional: see HPI, chills, diaphoresis, fever, malaise, weakness EENTM: see HPI, nose congestion Respiratory: see HPI, cough, short of breath Cardiovascular: see HPI, chest pain Gastrointestinal: no symptoms reported Genitourinary: no symptoms reported Musculoskeletal: see HPI Skin: no symptoms reported Psychiatric/Neurological: No Symptoms Reported Hematologic/Lymphatic: No Symptoms Reported Immunological/Allergic: no symptoms reported Past Hnharst-Iwbtpr-Rfoxot Hx Patient Social History Tobacco Use?: Yes Tobacco type used: Cigarettes Smoking Status: Current Everyday Smoker Use of E-Cig and/or Vaping dev: No Substance use?: Yes Substance type: Marijuana Substance frequency: Daily Alcohol Use?: No Pt feels they are or have been: No Immunizations Up To Date First/Initial COVID19 Vaccinat: 2020 Second COVID19 Vaccination Brandon: 2020 Third COVID19 Vaccination Date: 2020 Past Medical History Surgery/Hospitalization HX: PSYCHIATRIC HX, COPD, NEUROPATHY, CHRONIC PAIN, BIPOLAR, CANNABIS USE, SMOKER,BACKPAIN Surgeries: No Respiratory: Yes COPD Cardiac: No Neurological: Yes Neuropathy : No Reproductive Disorders: No 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 oz. kg; 39.00 BMI Method: General Appearance: WD/WN, no apparent distress, obese, other (REEKS OF CIGARETTES, FREQUENT LOOSE COUGH. ) HEENT: PERRL/EOMI, normal ENT inspection Neck: normal inspection Respiratory: no respiratory distress, no accessory muscle use, wheezing (BILATERAL EXPIRATORY WHEEZING ) Cardiovascular: regular rate, rhythm, no murmur Gastrointestinal: non tender, soft Extremities: normal inspection, no pedal edema, no calf tenderness, normal capillary refill Neurologic/Psychiatric: traffic ii manager II-XII nml as tested, no motor/sensory deficits, alert, normal mood/affect, oriented x 3 Skin: normal color, warm/dry Focused Exam Sepsis Stage: Ruled Out Reason for ruling out sepsis: DOES NOT MEET CRITERIA Possible Source: Pulmonary Lactate Level 01/16/23 10:37: Lactic Acid Level 1.03 Time of Focused Exam: 12:45 Respiratory: Normal Breath Sounds, No Accessory Muscle Use, No Respiratory Distress Cardiovascular: Regular Rate, Rhythm, No Murmur Capillary Refill: Less Than 3 Seconds Skin: normal color, warm/dry Lactic Acid Level Laboratory Tests Test 01/16/23 10:37 Lactic Acid Level 1.03 MMOL/L (0.50-2.00) Within 3hrs of presentation: Admin fluids, Admin ABX, Blood cultures prior to ABX's, Focus exam, Lactate level Progress/Results/Core Measures Suspected Sepsis SIRS Temperature: Pulse: 81 Respiratory Rate: 22 Laboratory Tests 01/16/23 11:00: White Blood Count 5.2 Blood Pressure 135 /92 Mean: 106 01/16/23 10:37: Lactic Acid Level 1.03 Laboratory Tests 01/16/23 10:37: Creatinine 0.67, Total Bilirubin 0.3 01/16/23 11:00: Platelet Count 229 01/16/23 11:17: INR Comment 0.9 Results/Orders Lab Results Laboratory Tests Test 01/16/23 10:22 01/16/23 10:37 01/16/23 11:00 01/16/23 11:06 Range/Units Influenza Type A (RT-PCR) Not Detected Not Detecte Influenza Type B (RT-PCR) Not Detected Not Detecte SARS-CoV-2 RNA (RT-PCR) Not Detected Not Detecte Sodium Level 139 135-145 MMOL/L Potassium Level 4.0 3.6-5.0 MMOL/L Chloride Level 106 98-107 MMOL/L Carbon Dioxide Level 23 21-32 MMOL/L Anion Gap 10 5-14 MMOL/L Blood Urea Nitrogen 13 7-18 MG/DL Creatinine 0.67 0.60-1.30 MG/DL Estimat Glomerular Filtration Rate 101 BUN/Creatinine Ratio 19 Glucose Level 91 70-105 MG/DL Lactic Acid Level 1.03 0.50-2.00 MMOL/L Calcium Level 8.9 8.5-10.1 MG/DL Corrected Calcium 9.1 8.5-10.1 MG/DL Magnesium Level 1.9 1.6-2.4 MG/DL Total Bilirubin 0.3 0.1-1.0 MG/DL Aspartate Amino Transf (AST/SGOT) 24 5-34 U/L Alanine Aminotransferase (ALT/SGPT) 19 0-55 U/L Alkaline Phosphatase 87 40-136 U/L Total Creatine Kinase 169 H 29-168 U/L Creatine Kinase MB 2.6 <6.6 NG/ML Myoglobin 123.5 H 10.0-92.0 NG/ML Troponin I < 0.028 <0.028 NG/ML C-Reactive Protein High Sensitivity 1.37 H 0.00-0.50 MG/DL Total Protein 7.6 6.4-8.2 GM/DL Albumin 3.8 3.2-4.5 GM/DL Amylase Level 26 25-125 U/L Lipase 40 8-78 U/L White Blood Count 5.2 4.3-11.0 10^3/uL Red Blood Count 4.42 3.80-5.11 10^6/uL Hemoglobin 13.4 11.5-16.0 g/dL Hematocrit 41 35-52 % Mean Corpuscular Volume 92 80-99 fL Mean Corpuscular Hemoglobin 30 25-34 pg Mean Corpuscular Hemoglobin Concent 33 32-36 g/dL Red Cell Distribution Width 14.6 H 10.0-14.5 % Platelet Count 229 130-400 10^3/uL Mean Platelet Volume 9.4 9.0-12.2 fL Immature Granulocyte % (Auto) 0 % Neutrophils (%) (Auto) 39 L 42-75 % Lymphocytes (%) (Auto) 39 12-44 % Monocytes (%) (Auto) 19 H 0-12 % Eosinophils (%) (Auto) 1 0-10 % Basophils (%) (Auto) 1 0-10 % Neutrophils # (Auto) 2.1 1.8-7.8 10^3/uL Lymphocytes # (Auto) 2.1 1.0-4.0 10^3/uL Monocytes # (Auto) 1.0 0.0-1.0 10^3/uL Eosinophils # (Auto) 0.1 0.0-0.3 10^3/uL Basophils # (Auto) 0.0 0.0-0.1 10^3/uL Immature Granulocyte # (Auto) 0.0 0.0-0.1 10^3/uL Neutrophils % (Manual) 42 % Lymphocytes % (Manual) 26 % Monocytes % (Manual) 13 % Band Neutrophils 1 % Reactive Lymphocytes 18 % Erythrocyte Sedimentation Rate 17 0-30 MM/HR B-Type Natriuretic Peptide 16.2 <100.0 PG/ML Urine Color YELLOW Urine Clarity CLEAR Urine pH 6.0 5-9 Urine Specific [place] <=1.005 1.016-1.022 Urine Protein NEGATIVE NEGATIVE Urine Glucose (UA) NEGATIVE NEGATIVE Urine Ketones NEGATIVE NEGATIVE Urine Nitrite NEGATIVE NEGATIVE Urine Bilirubin NEGATIVE NEGATIVE Urine Urobilinogen 0.2 < = 1.0 MG/DL Urine Leukocyte Esterase NEGATIVE NEGATIVE Urine RBC (Auto) 1+ H NEGATIVE Urine RBC RARE /HPF Urine WBC RARE /HPF Urine Squamous Epithelial Cells 0-2 /HPF Urine Crystals NONE /LPF Urine Bacteria NEGATIVE /HPF Urine Casts NONE /LPF Urine Mucus NEGATIVE /LPF Urine Culture Indicated NO Test 01/16/23 11:17 01/16/23 12:05 Range/Units Prothrombin Time 12.7 12.2-14.7 SEC INR Comment 0.9 0.8-1.4 Activated Partial Thromboplast Time 32 24-35 SEC D-Dimer 0.59 H 0.00-0.49 UG/ML Blood Gas Puncture Site RADIAL Blood Gas Patient Temperature 36.8 Arterial Blood pH 7.38 7.37-7.43 Arterial Blood Partial Pressure CO2 43 35-45 MMHG Arterial Blood Partial Pressure O2 68 L 79-93 MMHG Arterial Blood HCO3 26 23-27 MMOL/L Arterial Blood Total CO2 27.1 21.0-31.0 MMOL/L Arterial Blood Oxygen Saturation 96 94-100 % Arterial Blood Base Excess 1.0 -2.5-2.5 MMOL/L Shaq Test YES-POS Blood Gas Ventilator Setting NO Blood Gas Inspired Oxygen 2 My Orders Orders - JOEL BOWMAN DO Covid 19 Inhouse Test (01/16/23 10:19) Influenza A And B By Pcr (01/16/23 10:19) Isolation Central Supply Req (01/16/23 10:19) Ed Iv/Invasive Line Start (01/16/23 10:30) Ekg Tracing (01/16/23 10:30) O2 (01/16/23 10:30) Monitor-Rhythm Ecg Trace Only (01/16/23 10:30) Chest 1 View, Ap/Pa Only (01/16/23 10:30) Amylase (01/16/23 10:30) Bnp Mino (01/16/23 10:30) Cbc With Automated Diff (01/16/23 10:30) Comprehensive Metabolic Panel (01/16/23 10:30) Creatine Kinase (01/16/23 10:30) Creatine Kinase Mb (01/16/23 10:30) Hs C Reactive Protein (01/16/23 10:30) Fibrin Degradation Products (01/16/23 10:30) Lactic Acid Analyzer (01/16/23 10:30) Lipase (01/16/23 10:30) Magnesium (01/16/23 10:30) Protime With Inr (01/16/23 10:30) Partial Thromboplastin Time (01/16/23 10:30) Ua Culture If Indicated (01/16/23 10:30) Erythrocyte Sedimentation Rate (01/16/23 10:30) Myoglobin Serum (01/16/23 10:30) Troponin I Mino (01/16/23 10:30) Blood Culture (01/16/23 10:30) Sputum Culture (01/16/23 10:30) Urine Culture (01/16/23 10:30) Ed Iv/Invasive Line Start (01/16/23 10:30) Ed Iv/Invasive Line Start (01/16/23 10:30) Vital Signs Adult Sepsis Patie Q15M (01/16/23 10:30) O2 (01/16/23 10:30) Remove Rings In Anticipation O (01/16/23 10:30) Aspirin Chewable Tablet (Baby Aspirin Ch (01/16/23 10:30) Ed Iv/Invasive Line Start (01/16/23 11:06) Lactated Ringers (Lr 1000 Ml Iv Solution (01/16/23 11:15) Cefepime Injection (Maxipime Injection) (01/16/23 11:15) Methylprednisolone Sod Succ (Solu-Medrol (01/16/23 11:15) Albuterol/Ipra Inhalation Soln (Duoneb I (01/16/23 11:15) Dexamethasone Injection (Decadron Injec (01/16/23 11:15) Rt Request For Service (01/16/23 11:06) Svn Small Volume Nebulizer (01/16/23 11:06) Manual Differential (01/16/23 11:00) Arterial Blood Gas (01/16/23 12:06) Ct Chest Wo (01/16/23 12:03) Ed Iv/Invasive Line Start (01/16/23 13:21) Lactated Ringers (Lr 1000 Ml Iv Solution (01/16/23 13:30) Ed Iv/Invasive Line Start (01/16/23 13:27) Ns Iv 1000 Ml (Sodium Chloride 0.9%) (01/16/23 13:30) Ed Admission (Communication) (01/16/23 13:28) Medications Given in ED Current Medications Medications Dose Ordered Sig/Kalee Route Start Time Stop Time Status Last Admin Dose Admin Albuterol/ Ipratropium 3 ml ONCE ONCE INH 01/16/23 11:15 01/16/23 11:16 DC 01/16/23 12:05 3 ML Aspirin 324 mg ONCE ONCE PO 01/16/23 10:30 01/16/23 10:35 DC 01/16/23 11:23 324 MG Cefepime HCl 1000 mg/Sodium Chloride 50 ml @ 100 mls/hr ONCE ONCE IV 01/16/23 11:15 01/16/23 11:44 DC 01/16/23 11:28 100 MLS/HR Dexamethasone Sodium Phosphate 20 mg ONCE ONCE IH 01/16/23 11:15 01/16/23 11:16 DC 01/16/23 12:04 20 MG Lactated Ringer's 1,000 ml @ 0 mls/hr Q0M ONCE IV 01/16/23 11:15 01/16/23 11:16 DC 01/16/23 11:23 1,000 MLS/HR Lactated Ringer's 1,000 ml @ 0 mls/hr Q0M ONCE IV 01/16/23 13:30 01/16/23 13:31 DC 01/16/23 13:36 1,000 MLS/HR Methylprednisolone Sodium Succinate 125 mg ONCE ONCE IVP 01/16/23 11:15 01/16/23 11:16 DC 01/16/23 11:24 125 MG Vital Signs/I&O 01/16/23 01/16/23 01/16/23 10:20 10:25 12:10 Temp 36.9 Pulse 81 Resp 22 B/P (MAP) 135/92 (106) Pulse Ox 93 93 91 O2 Delivery Nasal Cannula Nasal Cannula Nasal Cannula O2 Flow Rate 2.00 2.00 2.00 Capillary Refill : Less Than 3 Seconds Blood Pressure Mean: 106 Progress Note : Progress Note PLACED IN ISOLATION ROOM PPE WORN COVID AND FLU TESTING DONE SEPSIS PROTOCOL INITIATED CHEST PAIN PROTOCOL INITIATED GIVEN: -IV FLUIDS -ANTIBIOTICS -SOLU-MEDROL -NEBULIZER TREATMENT O2 SAT 87% ON ROOM AIR ON ARRIVAL UP TO 94-95% ON 2L/NC INCREASED AERATION AND BUT STILL WITH WHEEZING AFTER NEB TREATMENTS AND SOLU- MEDROL BP UP TO > 100 SYSTOLIC WITH FLUIDS. NO FEVER NO TACHYCARDIA VERY DIFFICULT IV ACCESS--IV IN RIGHT EJ UNABLE TO DO CT CHEST ANGIOGRAM DUE TO PLACEMENT OF IV, AND UNABLE TO ACCESS ANY OTHER PERIPHERAL SITES. PLAIN CT ORDERED REVIEWED PRIOR RECORDS, INCLUDING ER VISITS, ADMIT, H&P, TESTS, DISCHARGE SUMMARY PT JUST MOV[place] HER LAST [place]ING [place]. ECG Initial ECG Impression Date: Jan 16, 2023 Initial ECG Impression Time: 10:36 Initial ECG Rate: 75 Initial ECG Rhythm: Normal Sinus Initial ECG Impression: Normal Comment INTERPRETED BY ME Diagnostic Imaging Comments CXR--PER RADIOLOGIST REPORT AT 1105 FINDINGS: The cardiac silhouette is within normal limits in size. No significant pulmonary vascular congestion. Significant apex right curvature of the spine is again noted with postsurgical changes noted within the upper cervicothoracic spine. Previously identified extensive opacities within the right mid lower lung have improved. Minimal persisting bibasilar interstitial opacities are identified. No significant pleural effusion or pneumothorax. No acute osseous abnormality. IMPRESSION: Minimal bibasilar atelectasis and/or pneumonitis. Interval clearance of previously noted infiltrate within the right mid and lower lung noted on the prior radiograph. CT CHEST--PER RADIOLOGIST REPORT AT 1314 FINDINGS: Air trapping is a chronic finding present. The previous acute superimposed groundglass multifocal infiltrates in the right greater than left lung have largely resolved. There may be some residual scarring at the site of prior infiltrates. No findings of acute pneumonia or pulmonary edema at today's study. This patient has few likely stable but previously partially obscured subcentimeter subpleural nodules in the lung bases unchanged, largest in the right lower lobe measured 5 mm. No suspicious mass. No spiculated lesion. No thoracic lymphadenopathy. Previous tiny pleural effusions have resolved. There is no pneumothorax. The aorta is nonaneurysmal. Vascular patency cannot be addressed owing to the absence of contrast. There is some left-sided coronary artery calcifications atherosclerotic. No acute chest wall pathology. No thoracic adenopathy evident. IMPRESSION: 1. Essential resolution of prior multifocal pneumonia with chronic air trapping. There may be some mild increased scarring at the site of previous infiltrates. No acute cardiopulmonary abnormality today. 2. Stable benign-appearing and benign behaving subcentimeter subpleural nodules. Assuming the absence of any known primary malignancy these require no further followup. Reviewed: Reviewed by Me Departure Communication (Admissions) 1322--SPOKE WITH DR. ISRAEL, ACCEPTS PT F0R ADMIT, SHE WILL DO ADMIT ORDERS Impression Primary Impression: Acute respiratory failure Additional Impressions: Acute bronchitis COPD exacerbation Disposition: ADMITTED INPATIENT Condition: Improved Admissions Decision to Admit Reason: Admit from ER (General) Decision to Admit/Date: Jan 16, 2023 Time/Decision to Admit Time: 13:25 Departure-Patient Inst. Referrals: FAIZAN CERON (PCP/Family) Primary Care Physician JOEL BOWMAN DO Jan 16, 2023 11:06
[2023-01-16 11:08] LABS: BILIRUBIN,TOTAL 0.3 MG/DL (0.1-1.0); CARBON DIOXIDE 23 MMOL/L (21-32)
[2023-01-16 11:08] LABS: BASOPHILS % (AUTO) 1 % (0-10); EOSINOPHILS # (AUTO) 0.1 10^3/uL (0.0-0.3); EOSINOPHILS % (AUTO) 1 % (0-10); HEMATOCRIT 41 % (35-52); HEMOGLOBIN 13.4 g/dL (11.5-16.0); LYMPHOCYTES # (AUTO) 2.1 10^3/uL (1.0-4.0); LYMPHOCYTES % (AUTO) 39 % (12-44); MEAN CORPUSCULAR HEMOGLOBIN 30 pg (25-34); MEAN CORPUSCULAR HGB CONC 33 g/dL (32-36); MEAN CORPUSCULAR VOLUME 92 fL (80-99); MEAN PLATELET VOLUME 9.4 fL (9.0-12.2); MONOCYTES % (AUTO) 19 % (0-12); NEUTROPHILS # (AUTO) 2.1 10^3/uL (1.8-7.8); NEUTROPHILS % (AUTO) 39 % (42-75); PLATELET COUNT 229 10^3/uL (130-400); WHITE BLOOD COUNT 5.2 10^3/uL (4.3-11.0)
[2023-01-16 11:10] LABS: ALKALINE PHOSPHATASE 87 U/L (40-136); CREATININE SERUM 0.67 MG/DL (0.60-1.30); GFR ESTIMATED 101
[2023-01-16 11:11] LABS: BUN/CREATININE RATIO 19
[2023-01-16 11:13] LABS: ALANINE AMINOTRANSFERASE 19 U/L (0-55); MAGNESIUM 1.9 MG/DL (1.6-2.4)
[2023-01-16 11:14] LABS: CREATINE KINASE 169 U/L (29-168); LIPASE 40 U/L (8-78)
[2023-01-16 11:15] LABS: BILIRUBIN,URINE NEGATIVE (NEGATIVE); CLARITY,URINE CLEAR; COLOR,URINE YELLOW; GLUCOSE, URINE (UA) NEGATIVE (NEGATIVE); KETONES,URINE NEGATIVE (NEGATIVE); LEUKOCYTE ESTERASE ,URINE NEGATIVE (NEGATIVE); NITRITE,URINE NEGATIVE (NEGATIVE); PROTEIN,URINE NEGATIVE (NEGATIVE)
[2023-01-16] MEDS ORDERED: RT-ALBUTEROL/IPRATROPIUM 3 ML (DUONEB) VIAL INH ONE (11:15)
[2023-01-16] MEDS ORDERED: CEFEPIME INJECTION 1,000 MG in NS (IVPB) 50 ML IV ONE (11:15)
[2023-01-16] MEDS ORDERED: methylPREDNISolone 125 MG (Solu-MEDROL) VIAL IVP ONE (11:15)
[2023-01-16] MEDS ORDERED: LACTATED RINGERS 1,000 ML IV ONE ×3 (11:15→16:22)
[2023-01-16 11:21] LABS: CREATINE KINASE MB 2.6 NG/ML (<6.6)
[2023-01-16 11:31] LABS: ERYTHROCYTE SEDIMENTATION RATE 17 MM/HR (0-30)
[2023-01-16 11:33] LABS: BACTERIA,URINE NEGATIVE /HPF; RBC,URINE RARE /HPF; SQUAMOUS EPITHELIAL CELL,UR 0-2 /HPF; WBC,URINE RARE /HPF
[2023-01-16 11:42] LABS: FIBRIN DEGRADATION PRODUCTS 0.59 UG/ML (0.00-0.49); INR 0.9 (0.8-1.4); PROTHROMBIN TIME PATIENT 12.7 SEC (12.2-14.7)
[2023-01-16 11:45] LABS: BAND NEUTROPHILS 1 %; LYMPHOCYTES % (MANUAL) 26 %; MONOCYTES % (MANUAL) 13 %; NEUTROPHILS % (MANUAL) 42 %
[2023-01-16 11:46] LABS: REACTIVE LYMPHOCYTES 18 %
[2023-01-16 12:14] LABS: ABG OXYGEN SATURATION 96 % (94-100); ABG PCO2 43 MMHG (35-45); ABG PH 7.38 (7.37-7.43); ABG PO2 68 MMHG (79-93); ABG TCO2 27.1 MMOL/L (21.0-31.0)
[2023-01-16 12:16] LABS: ALLENS TEST YES-POS; INSPIRED O2 2; VENTILATOR NO
[2023-01-16 12:17] LABS: PATIENT TEMP 36.8
--- NOTE | 2023-01-16 13:11 | Diagnostic Imaging Report ---
PROCEDURE: CT chest without contrast. TECHNIQUE: Multiple contiguous axial images were obtained through the chest without the use of intravenous contrast. Auto Exposure Controls were utilized during the CT exam to meet ALARA standards for radiation dose reduction. INDICATION: Chest pain, cough and congestion. COMPARISON: 11/26/2022 FINDINGS: Air trapping is a chronic finding present. The previous acute superimposed groundglass multifocal infiltrates in the right greater than left lung have largely resolved. There may be some residual scarring at the site of prior infiltrates. No findings of acute pneumonia or pulmonary edema at today's study. This patient has few likely stable but previously partially obscured subcentimeter subpleural nodules in the lung bases unchanged, largest in the right lower lobe measured 5 mm. No suspicious mass. No spiculated lesion. No thoracic lymphadenopathy. Previous tiny pleural effusions have resolved. There is no pneumothorax. The aorta is nonaneurysmal. Vascular patency cannot be addressed owing to the absence of contrast. There is some left-sided coronary artery calcifications atherosclerotic. No acute chest wall pathology. No thoracic adenopathy evident. IMPRESSION: 1. Essential resolution of prior multifocal pneumonia with chronic air trapping. There may be some mild increased scarring at the site of previous infiltrates. No acute cardiopulmonary abnormality today. 2. Stable benign-appearing and benign behaving subcentimeter subpleural nodules. Assuming the absence of any known primary malignancy these require no further followup. Dictated by: Dictated on workstation # [id number]
[2023-01-16] MEDS ORDERED: NS IV 1000 ML 1,000 ML IV SCH (13:30)
[2023-01-16] MEDS ORDERED: DONE10TA41 PO (15:31)
[2023-01-16] MEDS ORDERED: ASPI1TAB23 PO (15:31)
[2023-01-16 15:50] VITALS: BP 138/81
[2023-01-16] MEDS ORDERED: RT-ALBUTEROL SULF 2.5 MG/3 ML PRE-MIX VIAL INH PRN (16:00)
[2023-01-16] MEDS: methylPREDNISolone 125 MG (Solu-MEDROL) VIAL IV SCH ×2 (17:36→23:47)
[2023-01-16] MEDS: ENOXAPARIN 40 MG/0.4 ML (LOVENOX) SYR SC SCH (17:36)
[2023-01-16] MEDS: CEFEPIME INJECTION 1,000 MG in NS (IVPB) 50 ML IV SCH ×2 (17:37→23:47)
[2023-01-16] MEDS ORDERED: FLU QUADRIvalent (6 months+) 60 mcg/0.5 ml 2022-23 (Fluzone) IM ONE (18:00)
[2023-01-16] MEDS: RT-IPRATROPIUM (ATROVENT) 0.5MG/2.5ML AMP IH SCH ×2 (18:59→21:59)
[2023-01-16] MEDS: RT-ALBUTEROL SULF 2.5 MG/3 ML PRE-MIX VIAL INH SCH ×2 (19:00→22:00)
[2023-01-16 20:19] VITALS: BP 131/85
[2023-01-16] MEDS ORDERED: NON-FORMULARY MEDICATION 1 EA EA (Aspirin/Acetaminophen/Caffeine (Excedrin Migraine Caplet PO PRN (21:00)
[2023-01-16] MEDS: GABAPENTIN 400 MG (NEURONTIN) CAP PO SCH (21:59)
[2023-01-16] MEDS: BACLOFEN 10 MG (LIORESAL) TAB PO SCH (21:59)
[2023-01-16] MEDS ORDERED: QUEtiapine 200 MG (SEROquel) TAB IMMEDIATE RELEASE ONE (22:08)
[2023-01-16] MEDS: QUEtiapine 200 MG (SEROquel) TAB IMMEDIATE RELEASE PO SCH (22:11)
[2023-01-16 23:48] VITALS: BP 106/70
[2023-01-17] MEDS: RT-IPRATROPIUM (ATROVENT) 0.5MG/2.5ML AMP IH SCH ×6 (02:45→22:15)
[2023-01-17] MEDS: RT-ALBUTEROL SULF 2.5 MG/3 ML PRE-MIX VIAL INH SCH ×6 (02:46→22:15)
[2023-01-17 03:25] VITALS: BP 114/66
[2023-01-17] MEDS: CEFEPIME INJECTION 1,000 MG in NS (IVPB) 50 ML IV SCH ×4 (05:17→23:02)
[2023-01-17] MEDS: methylPREDNISolone 125 MG (Solu-MEDROL) VIAL IV SCH (05:17)
[2023-01-17 05:51] LABS: HEMATOCRIT 38 % (35-52); HEMOGLOBIN 12.5 g/dL (11.5-16.0); MEAN CORPUSCULAR HEMOGLOBIN 30 pg (25-34); MEAN CORPUSCULAR HGB CONC 33 g/dL (32-36); MEAN CORPUSCULAR VOLUME 92 fL (80-99); MEAN PLATELET VOLUME 9.7 fL (9.0-12.2); PLATELET COUNT 224 10^3/uL (130-400); WHITE BLOOD COUNT 4.7 10^3/uL (4.3-11.0)
[2023-01-17 06:07] LABS: CALCIUM 9.1 MG/DL (8.5-10.1); CREATININE SERUM 0.57 MG/DL (0.60-1.30); POTASSIUM 4.1 MMOL/L (3.6-5.0)
[2023-01-17 07:31] VITALS: BP 135/79
[2023-01-17] MEDS: GABAPENTIN 400 MG (NEURONTIN) CAP PO SCH ×3 (08:47→20:31)
[2023-01-17] MEDS: ASPIRIN E.C. 81 MG (ECOTRIN) TAB PO SCH (08:47)
[2023-01-17] MEDS: predniSONE 20 MG TAB PO SCH (08:48)
[2023-01-17] MEDS: BACLOFEN 10 MG (LIORESAL) TAB PO SCH ×2 (08:48→20:31)
--- NOTE | 2023-01-17 09:22 | History & Physical ---
HPI History of Present Illness: Short of breath, wheezing, congestion x 3 days. In November had bilateral pneumonia and didn't even know until she passed out and was admitted. She was worried about that so she came back. She used her albuterol inhaler at home (that is the only one she has), was using very frequently without a lot of benefit. She was on supplemental oxygen in Nov after d/c, but it had been discontinued as she was no longer needing. Denies fever. Admits severe cough that is intermittently productive. If she takes O2 off and goes to the bathroom, when she gets back she is short of breath. Started Namenda in addition to her Aricept for cognitive problems about 3 weeks ago, had been on Aricept long time with good benefit, but got severe body aches with Namenda. Is seeing Neuro at and going to see Alzheimer specialist but doesn't have clear diagnosis yet. Source: patient Date seen by provider: Jan 17, 2023 Time Seen by Provider: 09:19 Attending Physician Bam Gracia PCP Admitting Physician: Priscila Acevedo MD Attending Physician: Priscila Acevedo MD Consult Date of Admission Jan 16, 2023 at 14:55 Home Medications Home Medications Reviewed patient Home Medication Reconciliation performed by pharmacy medication reconciliations zyglo technician and/or nursing. Patients Allergies have been reviewed. Allergies Coded Allergies: No Known Drug Allergies (Unverified , 11/26/22) QHA-Aodaji-Lngqyr Hx Patient Social History Smoking Status: Current Everyday Smoker Alcohol Use?: No Substance type: Marijuana (reports last use many years ago) Tobacco type used: Cigarettes Have you traveled recently?: No Immunizations Up To Date Influenza Vaccine Up-to-Date: No; Not Current First/Initial COVID19 Vaccinat: 2020 Second COVID19 Vaccination Brandon: 2020 Third COVID19 Vaccination Date: 2020 Past Medical History PMHx: Chronic pain COPD Bipolar disorder Cognitive dysfunction- seen by Neurology and started on donepizil which she reports helps very well Attention deficit HLD SurgHx: 5 back surgeries Neck surgery Right meniscus surgery Left bunionectomy Left shoulder arthroscopy Epidural injections Family Medical History Significant Family History: Heart Disease, COPD, Diabetes, Psychiatric Problems (Alzheimer), Stroke, Other Conditions/Hx (rheumatoid arthritis) Other Significan Family Hx: Review of Systems ([facility]) Constitutional: No fever EENTM: nose congestion Respiratory: see HPI Cardiovascular: No chest pain (was having generalized prior to admit, better now) Gastrointestinal: No abdominal pain (was having spasms in abdominal muscles prior to admit, she thinks maybe due to cough), No constipation, No diarrhea, No nausea, No vomiting Genitourinary: No dysuria Musculoskeletal: back pain, joint pain Skin: No rash Reviewed Test Results Reviewed Test Results Lab Laboratory Tests Test 01/16/23 10:22 01/16/23 10:37 01/16/23 11:00 01/16/23 11:06 Range/Units Influenza Type A (RT-PCR) Not Detected Not Detecte Influenza Type B (RT-PCR) Not Detected Not Detecte SARS-CoV-2 RNA (RT-PCR) Not Detected Not Detecte Sodium Level 139 135-145 MMOL/L Potassium Level 4.0 3.6-5.0 MMOL/L Chloride Level 106 98-107 MMOL/L Carbon Dioxide Level 23 21-32 MMOL/L Anion Gap 10 5-14 MMOL/L Blood Urea Nitrogen 13 7-18 MG/DL Creatinine 0.67 0.60-1.30 MG/DL Estimat Glomerular Filtration Rate 101 BUN/Creatinine Ratio 19 Glucose Level 91 70-105 MG/DL Lactic Acid Level 1.03 0.50-2.00 MMOL/L Calcium Level 8.9 8.5-10.1 MG/DL Corrected Calcium 9.1 8.5-10.1 MG/DL Magnesium Level 1.9 1.6-2.4 MG/DL Total Bilirubin 0.3 0.1-1.0 MG/DL Aspartate Amino Transf (AST/SGOT) 24 5-34 U/L Alanine Aminotransferase (ALT/SGPT) 19 0-55 U/L Alkaline Phosphatase 87 40-136 U/L Total Creatine Kinase 169 H 29-168 U/L Creatine Kinase MB 2.6 <6.6 NG/ML Myoglobin 123.5 H 10.0-92.0 NG/ML Troponin I < 0.028 <0.028 NG/ML C-Reactive Protein High Sensitivity 1.37 H 0.00-0.50 MG/DL Total Protein 7.6 6.4-8.2 GM/DL Albumin 3.8 3.2-4.5 GM/DL Amylase Level 26 25-125 U/L Lipase 40 8-78 U/L White Blood Count 5.2 4.3-11.0 10^3/uL Red Blood Count 4.42 3.80-5.11 10^6/uL Hemoglobin 13.4 11.5-16.0 g/dL Hematocrit 41 35-52 % Mean Corpuscular Volume 92 80-99 fL Mean Corpuscular Hemoglobin 30 25-34 pg Mean Corpuscular Hemoglobin Concent 33 32-36 g/dL Red Cell Distribution Width 14.6 H 10.0-14.5 % Platelet Count 229 130-400 10^3/uL Mean Platelet Volume 9.4 9.0-12.2 fL Immature Granulocyte % (Auto) 0 % Neutrophils (%) (Auto) 39 L 42-75 % Lymphocytes (%) (Auto) 39 12-44 % Monocytes (%) (Auto) 19 H 0-12 % Eosinophils (%) (Auto) 1 0-10 % Basophils (%) (Auto) 1 0-10 % Neutrophils # (Auto) 2.1 1.8-7.8 10^3/uL Lymphocytes # (Auto) 2.1 1.0-4.0 10^3/uL Monocytes # (Auto) 1.0 0.0-1.0 10^3/uL Eosinophils # (Auto) 0.1 0.0-0.3 10^3/uL Basophils # (Auto) 0.0 0.0-0.1 10^3/uL Immature Granulocyte # (Auto) 0.0 0.0-0.1 10^3/uL Neutrophils % (Manual) 42 % Lymphocytes % (Manual) 26 % Monocytes % (Manual) 13 % Band Neutrophils 1 % Reactive Lymphocytes 18 % Erythrocyte Sedimentation Rate 17 0-30 MM/HR B-Type Natriuretic Peptide 16.2 <100.0 PG/ML Urine Color YELLOW Urine Clarity CLEAR Urine pH 6.0 5-9 Urine Specific [place] <=1.005 1.016-1.022 Urine Protein NEGATIVE NEGATIVE Urine Glucose (UA) NEGATIVE NEGATIVE Urine Ketones NEGATIVE NEGATIVE Urine Nitrite NEGATIVE NEGATIVE Urine Bilirubin NEGATIVE NEGATIVE Urine Urobilinogen 0.2 < = 1.0 MG/DL Urine Leukocyte Esterase NEGATIVE NEGATIVE Urine RBC (Auto) 1+ H NEGATIVE Urine RBC RARE /HPF Urine WBC RARE /HPF Urine Squamous Epithelial Cells 0-2 /HPF Urine Crystals NONE /LPF Urine Bacteria NEGATIVE /HPF Urine Casts NONE /LPF Urine Mucus NEGATIVE /LPF Urine Culture Indicated NO Test 01/16/23 11:17 01/16/23 12:05 01/17/23 05:36 Range/Units Prothrombin Time 12.7 12.2-14.7 SEC INR Comment 0.9 0.8-1.4 Activated Partial Thromboplast Time 32 24-35 SEC D-Dimer 0.59 H 0.00-0.49 UG/ML Blood Gas Puncture Site RADIAL Blood Gas Patient Temperature 36.8 Arterial Blood pH 7.38 7.37-7.43 Arterial Blood Partial Pressure CO2 43 35-45 MMHG Arterial Blood Partial Pressure O2 68 L 79-93 MMHG Arterial Blood HCO3 26 23-27 MMOL/L Arterial Blood Total CO2 27.1 21.0-31.0 MMOL/L Arterial Blood Oxygen Saturation 96 94-100 % Arterial Blood Base Excess 1.0 -2.5-2.5 MMOL/L Shaq Test YES-POS Blood Gas Ventilator Setting NO Blood Gas Inspired Oxygen 2 White Blood Count 4.7 4.3-11.0 10^3/uL Red Blood Count 4.15 3.80-5.11 10^6/uL Hemoglobin 12.5 11.5-16.0 g/dL Hematocrit 38 35-52 % Mean Corpuscular Volume 92 80-99 fL Mean Corpuscular Hemoglobin 30 25-34 pg Mean Corpuscular Hemoglobin Concent 33 32-36 g/dL Red Cell Distribution Width 14.4 10.0-14.5 % Platelet Count 224 130-400 10^3/uL Mean Platelet Volume 9.7 9.0-12.2 fL Sodium Level 138 135-145 MMOL/L Potassium Level 4.1 3.6-5.0 MMOL/L Chloride Level 107 98-107 MMOL/L Carbon Dioxide Level 23 21-32 MMOL/L Anion Gap 8 5-14 MMOL/L Blood Urea Nitrogen 14 7-18 MG/DL Creatinine 0.57 L 0.60-1.30 MG/DL Estimat Glomerular Filtration Rate 105 BUN/Creatinine Ratio 25 Glucose Level 148 H 70-105 MG/DL Calcium Level 9.1 8.5-10.1 MG/DL Radiology 01/16/23 CT chest: IMPRESSION: 1. Essential resolution of prior multifocal pneumonia with chronic air trapping. There may be some mild increased scarring at the site of previous infiltrates. No acute cardiopulmonary abnormality today. 2. Stable benign-appearing and benign behaving subcentimeter subpleural nodules. Assuming the absence of any known primary malignancy these require no further followup. Physical Exam-([facility]) Physical Exam Vital Signs VS - Last 72 Hours, by Label 01/16/23 01/16/23 01/16/23 01/16/23 10:20 10:25 12:10 14:55 Temp 36.9 Pulse 81 84 Resp 22 17 B/P (MAP) 135/92 (106) 107/78 Pulse Ox 93 93 91 96 O2 Delivery Nasal Cannula Nasal Cannula Nasal Cannula Nasal Cannula O2 Flow Rate 2.00 2.00 2.00 2.00 01/16/23 01/16/23 01/16/23 01/16/23 15:50 19:02 19:05 20:05 Temp 36.5 Pulse 78 Resp 20 B/P (MAP) 138/81 (100) Pulse Ox 96 O2 Delivery Nasal Cannula Nasal Cannula Nasal Cannula Nasal Cannula O2 Flow Rate 3.50 3.50 2.00 3.50 01/16/23 01/16/23 01/16/23 01/17/23 20:19 22:01 23:48 02:46 Temp 36.9 36.4 Pulse 78 80 Resp 16 18 B/P (MAP) 131/85 (100) 106/70 (82) Pulse Ox 94 94 94 O2 Delivery Nasal Cannula Nasal Cannula Nasal Cannula Nasal Cannula O2 Flow Rate 3.50 3.50 3.50 3.50 01/17/23 01/17/23 01/17/23 01/17/23 03:25 06:27 07:31 08:00 Temp 36.2 36.9 Pulse 72 80 Resp 18 18 B/P (MAP) 114/66 (82) 135/79 (97) Pulse Ox 96 97 90 O2 Delivery Nasal Cannula Nasal Cannula Room Air Nasal Cannula O2 Flow Rate 3.50 3.50 3.50 01/17/23 01/17/23 11:11 11:23 Temp 36.6 Pulse 83 Resp 18 B/P (MAP) 131/68 (89) Pulse Ox 91 93 O2 Delivery Nasal Cannula Room Air O2 Flow Rate 3.50 Capillary Refill : Less Than 3 Seconds General Appearance: no apparent distress, obese Respiratory: crackles (decreased air movement throughout) Cardiovascular: regular rate, rhythm, no murmur Gastrointestinal: normal bowel sounds, non tender, soft Extremities: no pedal edema Neurologic/Psychiatric: alert, normal mood/affect Skin: warm/dry Assessment/Plan Assessment/Plan Admission Status: Observation (1) COPD exacerbation Status: Acute Assessment & Plan: Requiring 3lpm supplemental oxgyen with no baseline requirement 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 Received solumedrol x 4 doses, change to prednisone. Albuterol/ipratropium. No clear pneumonia, but antibiotics indicated for severe exacerbation and recent hospitalization. Cefepime started on admit. (2) COPD (chronic obstructive pulmonary disease) Status: Chronic (3) Hyperlipidemia Status: Chronic Assessment & Plan: Resume home meds (4) Dementia Status: Chronic Assessment & Plan: Resume home meds (5) Chronic pain Status: Chronic Assessment & Plan: Resume home meds (6) Bipolar disorder Status: Chronic Assessment & Plan: Resume home meds (7) DVT prophylaxis Status: Acute Assessment & Plan: Enoxaparin Clinical Quality Measures Admission Status Admission Status: Observation AMI/AHF: ASA po Prior to arrival: No (81mg today) PRISCILA ACEVEDO MD Jan 17, 2023 09:22
[2023-01-17 11:11] VITALS: BP 131/68
--- NOTE | 2023-01-17 11:24 | Physical Therapy Evaluation ---
PT Evaluation-General Medical Diagnosis Admission Date Jan 16, 2023 at 14:55 Medical Diagnosis: COPD Onset Date: Jan 16, 2023 Therapy Diagnosis Therapy Diagnosis: Gait deficit, strength deficit Precautions Precautions/Isolations: Fall Prevention, Standard Precautions Weight Bear Status Right Lower Extremity: Right Full Weight Bearing Left Lower Extremity: Left Full Weight Bearing Referral Physician: Dr. Acevedo Reason for Referral: Evaluation/Treatment Medical History Pertinent Medical History: COPD, Dementia, Neuropathy, Smoking Reviewed History: Yes Social History Home: Single Level Current Living Status: Spouse Entry Into Home: Stairs With Railing PT Steps Into Home: 4 Prior Prior Level of Function SCALE: Activities may be completed with or without assistive devices. 4-Ruwjedpdez-bkzjqis completes the activity by him/herself with no assistance from a helper. 5-Set-up or Clean-up Assistance-helper sets up or cleans up; patient completes activity. [place] assists only prior to or following the activity. 4-Supervision or Touching Assistance-helper provides verbal cues and/or touching/steadying and/or contact guard assistance as patient completes activity. Assistance may be provided throughout the activity or intermittently. 3-Partial/Moderate Assistance-helper does LESS THAN HALF the effort. [place] lifts, holds or supports trunk or limbs, but provides less than half the effort. 2-Substantial/Maximal Assistance-helper does MORE THAN HALF the effort. [place] lifts or holds trunk or limbs and provides more than half the effort. 3-Tumceuqdo-acahzx does ALL the effort. Patient does none of the effort to complete the activity. Or, the assistance of 2 or more helpers is required for the patient to complete the activity. If activity was not attempted, code reason: 7-Patient Refused. 9-Not Applicable-not attempted and the patient did not perform the activity before the current illness, exacerbation or injury. 10-Not Attempted due to Environmental Limitations-(lack of equipment, weather restraints, etc.). 88-Not Attempted due to Medical Conditions or Safety Concerns. Bed Mobility: 6 Transfers (B,C,W/C): 6 Gait: 6 Stairs: 6 Indoor Mobility (Ambulation): Independent Stairs: Independent Prior Devices Use: Walker PT Evaluation-Current Subjective Patient sitting on edge of bed upon PT arrival, agreeable to treatment. Patient rates pain currently as 5/10 in her back. Objective Patient Orientation: Person, Place, Time, Situation Attachments: Oxygen ROM/Strength ROM Lower Extremities WFLs all planes bilaterally Strength Lower Extremities 4/5 all planes bilaterally. Sensory Hearing: Functional Sensation Right Lower Extremit: Intact Sensation Left Lower Extremity: Intact Transfers Roll Left to Right (QC): 6 Sit to Lying (QC): 6 Lying to Sitting/Side of Bed(Q: 6 Sit to Stand (QC): 6 Chair/Bwe-te-Kffit Xfer(QC): 6 Toilet Transfer (QC): 6 Gait Does the Patient Walk?: Yes Mode of Locomotion: Walk Anticipated Mode of Locomotion: Walk Walk 10 feet (QC): 6 Walk 50 ft with 2 Turns(QC): 6 Walk 150 ft (QC): 6 Distance: 300 feet Gait Assistive Device: FWW Balance Sitting Static: Normal Sitting Dynamic: Normal Standing Static: Normal Standing Dynamic: Good Assessment/Needs Patient demonstrates complete independence with all bed mobility and transfers. Patient took a shower independently prior to PT arrival. Patient notes she is not on O2 at baseline and did not wear it during shower. O2 sats at 87% on room air however increased to 92% upon returning to bed. Patient ambulates 300 feet with FWW, with 2 L O2. Post gait patient O2 sats were 93/94%. Patient in bed post treatment with all needs met, nursing notified, call light in hand. Rehab Potential: Good PT Plan Treatment/Plan Treatment Plan: Discontinue PT Treatment Duration: Jan 17, 2023 Frequency: Patient and/or Family Agrees t: Yes Discharge Recommendations Plan No further PT Time Time In: 1051 Time Out: 1115 DATE: Jan 17, 2023 Total Billed Treatment Time: 24 Total Billed Treatment Visit, Dominique Berrios JOHN A PT Jan 17, 2023 11:24
[2023-01-17 16:23] VITALS: BP 115/74
[2023-01-17] MEDS: ENOXAPARIN 40 MG/0.4 ML (LOVENOX) SYR SC SCH (16:45)
[2023-01-17] MEDS: QUEtiapine 200 MG (SEROquel) TAB IMMEDIATE RELEASE PO SCH (17:34)
[2023-01-17] MEDS ORDERED: DONEPEZIL 10 MG (ARICEPT) TAB PO SCH (18:00)
[2023-01-17 19:44] VITALS: BP 103/59
[2023-01-17] MEDS: guaiFENesin/DM (ROBITUSSIN DM) 10 ML UDC PO PRN (20:34)
[2023-01-17 23:03] VITALS: BP 107/61
[2023-01-18] MEDS: RT-ALBUTEROL SULF 2.5 MG/3 ML PRE-MIX VIAL INH SCH ×4 (02:26→14:13)
[2023-01-18] MEDS: RT-IPRATROPIUM (ATROVENT) 0.5MG/2.5ML AMP IH SCH ×4 (02:26→14:14)
[2023-01-18 03:25] VITALS: BP 111/60
[2023-01-18] MEDS: guaiFENesin/DM (ROBITUSSIN DM) 10 ML UDC PO PRN ×2 (03:30→11:14)
[2023-01-18] MEDS: CEFEPIME INJECTION 1,000 MG in NS (IVPB) 50 ML IV SCH ×2 (05:06→11:14)
[2023-01-18] MEDS: predniSONE 20 MG TAB PO SCH (05:08)
[2023-01-18 05:28] LABS: HEMATOCRIT 38 % (35-52); HEMOGLOBIN 12.3 g/dL (11.5-16.0); MEAN CORPUSCULAR HEMOGLOBIN 30 pg (25-34); MEAN CORPUSCULAR HGB CONC 33 g/dL (32-36); MEAN CORPUSCULAR VOLUME 92 fL (80-99); MEAN PLATELET VOLUME 9.6 fL (9.0-12.2); PLATELET COUNT 234 10^3/uL (130-400); WHITE BLOOD COUNT 7.8 10^3/uL (4.3-11.0)
[2023-01-18 05:43] LABS: POTASSIUM 3.8 MMOL/L (3.6-5.0)
[2023-01-18 05:44] LABS: CALCIUM 8.8 MG/DL (8.5-10.1)
[2023-01-18 05:48] LABS: CREATININE SERUM 0.64 MG/DL (0.60-1.30)
[2023-01-18 07:36] VITALS: BP 113/76
[2023-01-18] MEDS: ASPIRIN E.C. 81 MG (ECOTRIN) TAB PO SCH (08:51)
[2023-01-18] MEDS: BACLOFEN 10 MG (LIORESAL) TAB PO SCH (08:52)
[2023-01-18] MEDS: GABAPENTIN 400 MG (NEURONTIN) CAP PO SCH ×2 (08:52→14:00)
[2023-01-18 11:20] VITALS: BP 114/76
[2023-01-18] MEDS ORDERED: CEFD300C3 PO (12:47)
[2023-01-18] MEDS ORDERED: PRED10TA22 PO (12:47)
--- NOTE | 2023-01-18 12:47 | Discharge Summary ---
Discharge Summary Hospital Course Was the Problem List Reviewed?: Yes Problems/Dx: (1) COPD exacerbation Status: Acute (2) Bipolar disorder Status: Chronic (3) Chronic pain Status: Chronic (4) Hyperlipidemia Status: Chronic (5) COPD (chronic obstructive pulmonary disease) Status: Chronic Hospital Course Date of Admission: Jan 16, 2023 at 14:55 Admission Diagnosis : Family Physician/Provider: Bam Gracia Date of Discharge: 01/18/23 Discharge Diagnosis: [ ] Hospital Course: 57 year old female with a past medical history of COPD and hospitalization in November for bilateral lower lobe pneumonia presented to [facility] ER on 01/16 with a chief complain of wheezing for three days and increased use of albuterol inhaler without resolution of symptoms. CXR showed Minimal bibasilar atelectasis and/or pneumonitis.Interval clearance of previously noted infiltrate within the right mid and lower lung noted on the prior radiograph. Patient underwent CT which showed Essential resolution of prior multifocal pneumonia with chronic air trapping. There may be some mild increased scarring at the site of previous infiltrates. No acute cardiopulmonary abnormality today. Stable benign-appearing and benign behaving subcentimeter subpleural nodules. Assuming the absence of any known primary malignancy these require no further followup. Patient was sta rted on breathing treatments, cefepime, and supplemental oxygen. By 01/18 patient had showed marked improvement and was ready to be discharged home. Patient first underwent a home oxygen study and then was discharged home with three days of cefdinir, breathing txs, and home oxygen orders. Patient will need close follow up with primary care physician to adjust breathing treatment me dications as needed. Labs and Pending Lab Test: Laboratory Tests 01/18/23 05:15: White Blood Count 7.8, Red Blood Count 4.10, Hemoglobin 12.3, Hematocrit 38, Mean Corpuscular Volume 92, Mean Corpuscular Hemoglobin 30, Mean Corpuscular Hemoglobin Concent 33, Red Cell Distribution Width 14.6H, Platelet Count 234, Mean Platelet Volume 9.6, Sodium Level 140, Potassium Level 3.8, Chloride Level 106, Carbon Dioxide Level 24, Anion Gap 10, Blood Urea Nitrogen 16, Creatinine 0.64, Estimat Glomerular Filtration Rate 102, BUN/Creatinine Ratio 25, Glucose Level 98, Calcium Level 8.8 Microbiology 01/16/23 Gram Stain - Final, Complete 01/16/23 Sputum Culture - Final, Complete Usual upper respiratory moise 01/16/23 Urine Culture - Final, Complete >=3 Gram Positive Isolates 01/16/23 Blood Culture - Preliminary, Resulted No growth Home Meds Active Prednisone 10 Mg Tab.ds.pk 10 Mg PO DAILY Take 6 tabs(60mg)daily,decrease by 1 tab(10MG)daily. Cefdinir 300 Mg Capsule 300 Mg PO BID Reported Donepezil HCl 10 Mg Tablet 10 Mg PO 1800 LAST FILLED 10-13-2022 #30/30 DAY SUPPLY Excedrin Migraine Caplet (Aspirin/Acetaminophen/Caffeine) 250 Mg-250 Mg-65 Mg Tablet 2 Each PO Q6-8HR PRN Simvastatin 40 Mg Tablet 40 Mg PO DAILY Aspirin EC (Aspirin) 81 Mg Tablet.dr 81 Mg PO DAILY Quetiapine Fumarate 400 Mg Tablet 800 Mg PO 1800 TAKES 2 (400MG) TABS Gabapentin 400 Mg Capsule 400 Mg PO TID Baclofen 10 Mg Tablet 10 Mg PO BID Ventolin Hfa (Albuterol Sulfate) 90 Mcg Hfa.aer.ad 2 Puff INH Q4H PRN Oxycodone HCl 10 Mg Tablet 10 Mg PO Q6H PRN Assessment/Pt Instructions pcp 1 week Discharge Planning: <30 minutes discharge planning Discharge Instructions Discharge Diet: No Restrictions Discharge Physical Examination Vital Signs Vital Signs Date Time Temp Pulse Resp B/P (MAP) Pulse Ox O2 Delivery O2 Flow Rate FiO2 01/18/23 11:20 37.0 76 18 114/76 (89) 93 Nasal Cannula 3.50 General Appearance: No Apparent Distress, WD/WN, Chronically ill Respiratory: Lungs Clear, Normal Breath Sounds Cardiovascular: Regular Rate, Rhythm Neurologic/Psychiatric: Alert, Oriented x3, No Motor/Sensory Deficits, Normal Mood/Affect Allergies: Coded Allergies: No Known Drug Allergies (Unverified , 11/26/22) Discharge Summary Date of Admission Jan 16, 2023 at 14:55 Date of Discharge Discharge Date: Jan 18, 2023 Clinical Quality Measures AMI/AHF: ASA po Prior to arrival: No (81mg today) EZ DE DIOS DO Jan 18, 2023 12:47
[2023-01-18 14:39] VITALS: BP 114/76
--- NOTE | 2023-01-18 16:49 | Progress Note ---
SABAS ROSAS 01/18/23 1649: Progress Note 57 year old female with a past medical history of COPD and hospitalization in November for bilateral lower lobe pneumonia presented to [facility] ER on 01/16 with a chief complain of wheezing for three days and increased use of albuterol inhaler without resolution of symptoms. CXR showed Minimal bibasilar atelectasis and/or pneumonitis.Interval clearance of previously noted infiltrate within the right mid and lower lung noted on the prior radiograph. Patient underwent CT which showed Essential resolution of prior multifocal pneumonia with chronic air trapping. There may be some mild increased scarring at the site of previous infiltrates. No acute cardiopulmonary abnormality today. Stable benign-appearing and benign behaving subcentimeter subpleural nodules. Assuming the absence of any known primary malignancy these require no further followup. Patient was started on breathing treatments, cefepime, and supplemental oxygen. By 01/18 patient had showed marked improvement and was ready to be discharged home. Patient first underwent a home oxygen study and then was discharged home with three days of cefdinir, breathing txs, and home oxygen orders. Patient will need close follow up with primary care physician to adjust breathing treatment medications as needed. BECKY DE DIOS DO 01/18/232055: Supervisory-Addendum Brief Verification & Attestation Participated in pt care: history, MDM, physical Personally performed: exam, history, MDM, supervision of care Care discussed with: Medical Student Procedures: n/a Results interpretation: Verified all documentation Verification and Attestation of Medical Student E/M Service A medical student performed and documented this service in my presence. I reviewed and verified all information documented by the medical student and made modifications to such information, when appropriate. I personally performed the physical exam and medical decision making. Becky De Dios Jan 18, 2023,20:56 SABAS ROSAS Jan 18, 2023 16:49 BECKY DE DIOS DO Jan 18, 2023 20:56
== END 2023-01-18 14:50 | disposition home or self-care (01) ==
LOC: EDUNIT# 10:13 → ER 10:15 → INTOOBSV 14:55 → 4TH 14:55
PROVIDERS: ADMIT Family Medicine; ATTEND Internal Medicine
DX: J44.1 Chronic obstructive pulmonary disease with (acute) exacerbation (principal); J96.00 Acute respiratory failure, unspecified whether with hypoxia or hypercapnia; J20.9 Acute bronchitis, unspecified; G89.29 Other chronic pain; E78.5 Hyperlipidemia, unspecified; F17.210 Nicotine dependence, cigarettes, uncomplicated; F03.90 Unspecified dementia, unspecified severity, without behavioral disturbance, psychotic disturbance, mood disturbance, and anxiety; F31.9 Bipolar disorder, unspecified; Z79.51 Long term (current) use of inhaled steroids; Z79.899 Other long term (current) drug therapy; Z79.891 Long term (current) use of opiate analgesic; Z79.82 Long term (current) use of aspirin
CPT/HCPCS: 71045; 71250; 80048 ×2; 80053; 81000; 82150; 82550; 82553; 82805; 83605; 83690; 83735; 83874; 83880; 84484; 85007; 85027 ×3; 85379; 85610; 85652; 85730; 86141; 87040; 87070; 87088; 87205; 87636; 93005; 93041; 94640 ×5; 94664; 94760; 94761; 96366 ×3; 96372 ×2; 96376 ×3; 97116; 97161; 99285; G0008; G0378; 36415; 90471; 90686

== ENCOUNTER 2023-03-24 02:36 | Observation (INO) | payer MEDICARE, MEDICAID ==
[~2023-03-24] VITALS: Ht 160 cm; Wt 98.1 kg
[~2023-03-24 02:36] MED LIST changes: +ASPI1TAB23 PO; +DONE10TA41 PO; +PRED10TA22 PO
[2023-03-24] MEDS ORDERED: NS IV 500 ML 500 ML IV ONE (03:00)
[2023-03-24 03:06] LABS: BILIRUBIN,URINE NEGATIVE (NEGATIVE); CLARITY,URINE CLEAR; COLOR,URINE YELLOW; GLUCOSE, URINE (UA) NEGATIVE (NEGATIVE); KETONES,URINE NEGATIVE (NEGATIVE); LEUKOCYTE ESTERASE ,URINE 1+ (NEGATIVE); NITRITE,URINE NEGATIVE (NEGATIVE); PH,URINE 6.5 (5-9); PROTEIN,URINE NEGATIVE (NEGATIVE)
[2023-03-24 03:09] LABS: ABG BASE EXCESS 4.9 MMOL/L (-2.5-2.5); ABG OXYGEN SATURATION 96 % (94-100); ABG PCO2 52 MMHG (35-45); ABG PH 7.38 (7.37-7.43); ABG PO2 77 MMHG (79-93); ABG TCO2 31.4 MMOL/L (21.0-31.0)
[2023-03-24 03:10] LABS: ALLENS TEST YES-POS; INSPIRED O2 2L; PATIENT TEMP 36.9; VENTILATOR NO
[2023-03-24 03:13] LABS: RBC,URINE 0-2 /HPF
[2023-03-24 03:14] LABS: BACTERIA,URINE LARGE /HPF; SQUAMOUS EPITHELIAL CELL,UR 25-50 /HPF
--- NOTE | 2023-03-24 03:24 | ED General ---
General Chief Complaint: Trauma-Non Activation Stated Complaint: FALL Nursing Triage Note: PATIENT STATES TRIPPED OVER RUG AND WAS UNABLE TO GET UP. PATIENT STATES ONGOING FALLS SINCE 2022. PATIENT VERBALIZED DEMENTIA, HAS STARTED A NEW MED. CONCERNED SHE SOMETHING "NOT RIGHT" Source of Information: Patient Exam Limitations: No Limitations History of Present Illness Date Seen by Provider: March 24, 2023 Time Seen by Provider: 02:37 Initial Comments Patient here by EMS with report of difficulty with standing and frequent falls. She states that she fell tonight but is unable to provide details. She states that she is afraid when she stands because she has fallen so much over the last several months. She has been seen by me before with similar complaints earlier this year and found to have pneumonia at that time. Patient states that she has dementia and is on medications for that. She is known to smoke cigarettes and marijuana. Denies chest pain or breathing problems. She has previously been on oxygen but was off of that now as her O2 saturations had improved. EMS reports essentially normal vital signs and O2 sats ranging from 88 to 96% on room air. Patient seems confused. She does report that she moved here from [place] after being there for 10 years. She does have history of COPD. Denies nausea, vomiting, diarrhea or dysuria. She is a two-person assist for standing due to weakness in her legs. She is chronically on narcotics. Timing/Duration: 1 Week, Changing Over Time, Getting Worse Severity: Moderate Associated Systoms: No Chest Pain, No Cough, No Fever/Chills, No Headaches, No Nausea/Vomiting, No Shortness of Air; Weakness Allergies and Home Medications Allergies Coded Allergies: No Known Drug Allergies (Unverified , 11/26/22) Patient Home Medication List Home Medication List Reviewed: Yes Albuterol Sulfate (Ventolin Hfa) 90 Mcg Hfa.aer.ad, 2 PUFF INH Q4H PRN for SHORTNESS OF BREATH, (Reported) Entered as Reported by: HAZEL AGOSTO on 11/27/22 1129 Aspirin (Aspirin EC) 81 Mg Tablet.dr, 81 MG PO DAILY, (Reported) Entered as Reported by: HAZEL AGOSTO on 11/27/22 1129 Aspirin/Acetaminophen/Caffeine (Excedrin Migraine Caplet) 250 Mg-250 Mg-65 Mg Tablet, 2 EACH PO Q6-8HR PRN for HEADACHE, (Reported) Entered as Reported by: HAZEL AGOSTO on 01/16/23 1531 Baclofen (Baclofen) 10 Mg Tablet, 10 MG PO BID, (Reported) Entered as Reported by: HAZEL AGOSTO on 11/27/22 1129 Cefdinir (Cefdinir) 300 Mg Capsule, 300 MG PO BID Prescribed by: EZ DE DIOS on 01/18/23 1247 Donepezil HCl (Donepezil HCl) 10 Mg Tablet, 10 MG PO 1800, (Reported) Entered as Reported by: HAZEL AGOSTO on 01/16/23 1531 Gabapentin (Gabapentin) 400 Mg Capsule, 400 MG PO TID, (Reported) Entered as Reported by: HAZEL AGOSTO on 11/27/22 112 Oxycodone HCl (Oxycodone HCl) 10 Mg Tablet, 10 MG PO Q6H PRN for PAIN-SEVERE (8-10), (Reported) Entered as Reported by: HAZEL AGOSTO on 11/27/22 112 Prednisone (Prednisone) 10 Mg Tab.ds.pk, 10 MG PO DAILY Prescribed by: EZ DE DIOS on 01/18/23 1247 Quetiapine Fumarate (Quetiapine Fumarate) 400 Mg Tablet, 800 MG PO 1800, (Reported) Entered as Reported by: HAZEL AGOSTO on 11/27/22 112 Simvastatin (Simvastatin) 40 Mg Tablet, 40 MG PO DAILY, (Reported) Entered as Reported by: HAZEL AGOSTO on 11/27/22 1233 Review of Systems Review of Systems Constitutional: see HPI; No chills, No fever EENTM: No nose congestion Respiratory: No cough, No short of breath Cardiovascular: No chest pain, No edema Gastrointestinal: No nausea, No vomiting Genitourinary: no symptoms reported Musculoskeletal: muscle weakness Skin: No change in color Psychiatric/Neurological: Anxiety, Tremors, Weakness Past Hvlhhzi-Ykfopq-Dkczny Hx Patient Social History Tobacco Use?: Yes Smoking Status: Current Everyday Smoker Substance use?: Yes Substance type: Marijuana Alcohol Use?: No Immunizations Up To Date First/Initial COVID19 Vaccinat: 2020 Second COVID19 Vaccination Brandon: 2020 Third COVID19 Vaccination Date: 2021 Past Medical History Surgery/Hospitalization HX: PSYCHIATRIC HX, COPD, NEUROPATHY, CHRONIC PAIN, BIPOLAR, CANNABIS USE, SMOKER,BACKPAIN Surgeries: No Respiratory: Yes COPD Cardiac: No Neurological: Yes Neuropathy Reproductive Disorders: No 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 oz. kg; 35.00 BMI Method: General Appearance: Anxious, Chronically ill, Mild Distress HEENT: PERRL/EOMI, Other (Mucous membranes dry) Neck: Full Range of Motion, Non Tender, Supple Respiratory: Expiration, Wheezing (Bilateral upper and lower mild) Cardiovascular: No Murmur, Tachycardia Gastrointestinal: Non Tender, Soft Back: Normal Inspection, No CVA Tenderness, No Vertebral Tenderness Extremity: Normal Range of Motion, Non Tender Neurologic/Psychiatric: Alert, Other (Occasionally confused conversation but no self and place but somewhat confused to situation and time) Skin: Normal Color, Warm/Dry Progress/Results/Core Measures Suspected Sepsis SIRS Temperature: Pulse: 66 Respiratory Rate: 18 Laboratory Tests 03/24/23 03:23: White Blood Count 8.5 Blood Pressure 118 /74 Mean: 89 Laboratory Tests 03/24/23 03:23: Creatinine 0.69, Platelet Count 300, Total Bilirubin 0.2 Results/Orders Lab Results Laboratory Tests Test 03/24/23 03:00 03/24/23 03:23 Range/Units Urine Color YELLOW Urine Clarity CLEAR Urine pH 6.5 5-9 Urine Specific [place] 1.020 1.016-1.022 Urine Protein NEGATIVE NEGATIVE Urine Glucose (UA) NEGATIVE NEGATIVE Urine Ketones NEGATIVE NEGATIVE Urine Nitrite NEGATIVE NEGATIVE Urine Bilirubin NEGATIVE NEGATIVE Urine Urobilinogen 0.2 < = 1.0 MG/DL Urine Leukocyte Esterase 1+ H NEGATIVE Urine RBC (Auto) NEGATIVE NEGATIVE Urine RBC 0-2 /HPF Urine WBC 2-5 /HPF Urine Squamous Epithelial Cells 25-50 H /HPF Urine Crystals NONE /LPF Urine Bacteria LARGE H /HPF Urine Casts NONE /LPF Urine Mucus NEGATIVE /LPF Urine Culture Indicated NO Blood Gas Puncture Site RT RADIAL Blood Gas Patient Temperature 36.9 Arterial Blood pH 7.38 7.37-7.43 Arterial Blood Partial Pressure CO2 52 H 35-45 MMHG Arterial Blood Partial Pressure O2 77 L 79-93 MMHG Arterial Blood HCO3 30 H 23-27 MMOL/L Arterial Blood Total CO2 31.4 H 21.0-31.0 MMOL/L Arterial Blood Oxygen Saturation 96 94-100 % Arterial Blood Base Excess 4.9 H -2.5-2.5 MMOL/L Shaq Test YES-POS Blood Gas Ventilator Setting NO Blood Gas Inspired Oxygen 2L White Blood Count 8.5 4.3-11.0 10^3/uL Red Blood Count 4.42 3.80-5.11 10^6/uL Hemoglobin 13.4 11.5-16.0 g/dL Hematocrit 41 35-52 % Mean Corpuscular Volume 92 80-99 fL Mean Corpuscular Hemoglobin 30 25-34 pg Mean Corpuscular Hemoglobin Concent 33 32-36 g/dL Red Cell Distribution Width 15.7 H 10.0-14.5 % Platelet Count 300 130-400 10^3/uL Mean Platelet Volume 9.1 9.0-12.2 fL Immature Granulocyte % (Auto) 1 % Neutrophils (%) (Auto) 63 42-75 % Lymphocytes (%) (Auto) 24 12-44 % Monocytes (%) (Auto) 11 0-12 % Eosinophils (%) (Auto) 0 0-10 % Basophils (%) (Auto) 1 0-10 % Neutrophils # (Auto) 5.3 1.8-7.8 10^3/uL Lymphocytes # (Auto) 2.1 1.0-4.0 10^3/uL Monocytes # (Auto) 1.0 0.0-1.0 10^3/uL Eosinophils # (Auto) 0.0 0.0-0.3 10^3/uL Basophils # (Auto) 0.1 0.0-0.1 10^3/uL Immature Granulocyte # (Auto) 0.1 0.0-0.1 10^3/uL Sodium Level 142 135-145 MMOL/L Potassium Level 4.0 3.6-5.0 MMOL/L Chloride Level 105 98-107 MMOL/L Carbon Dioxide Level 25 21-32 MMOL/L Anion Gap 12 5-14 MMOL/L Blood Urea Nitrogen 14 7-18 MG/DL Creatinine 0.69 0.60-1.30 MG/DL Estimat Glomerular Filtration Rate 101 BUN/Creatinine Ratio 20 Glucose Level 104 70-105 MG/DL Calcium Level 9.1 8.5-10.1 MG/DL Corrected Calcium 9.5 8.5-10.1 MG/DL Total Bilirubin 0.2 0.1-1.0 MG/DL Aspartate Amino Transf (AST/SGOT) 11 5-34 U/L Alanine Aminotransferase (ALT/SGPT) 11 0-55 U/L Alkaline Phosphatase 79 40-136 U/L C-Reactive Protein High Sensitivity 1.39 H 0.00-0.50 MG/DL Total Protein 6.7 6.4-8.2 GM/DL Albumin 3.5 3.2-4.5 GM/DL My Orders Orders - JORDAN FLETCHER MD Arterial Blood Gas (03/24/23 02:47) Cbc With Automated Diff (03/24/23 02:47) Comprehensive Metabolic Panel (03/24/23 02:47) Hs C Reactive Protein (03/24/23 02:47) Ua Culture If Indicated (03/24/23 02:47) Ed Iv/Invasive Line Start (03/24/23 02:47) O2 (03/24/23 02:47) Monitor-Rhythm Ecg Trace Only (03/24/23 02:47) Ct Head Wo (03/24/23 02:47) Chest 1 View, Ap/Pa Only (03/24/23 02:47) Ns Iv 500 Ml (Sodium Chloride 0.9%) (03/24/23 03:00) Dexamethasone Injection (Decadron Inje (03/24/23 04:30) Albuterol/Ipra Inhalation Soln (Duoneb I (03/24/23 04:30) Svn Small Volume Nebulizer (03/24/23 04:19) Albuterol Pre-Mix Nebs (Rt) (Proventil (03/24/23 04:39) Svn Small Volume Nebulizer (03/24/23 04:39) Code/Resuscitation (03/24/23 06:11) Ed Admission (Communication) (03/24/23 06:11) Medications Given in ED Current Medications Medications Dose Ordered Sig/Kalee Route Start Time Stop Time Status Last Admin Dose Admin Albuterol/ Ipratropium 3 ml ONCE ONCE INH 03/24/23 04:30 03/24/23 04:31 DC 03/24/23 04:25 3 ML Dexamethasone Sodium Phosphate 10 mg ONCE ONCE IV 03/24/23 04:30 03/24/23 04:31 DC 03/24/23 05:00 10 MG Sodium Chloride 500 ml @ 0 mls/hr Q0M ONCE IV 03/24/23 03:00 03/24/23 03:01 DC 03/24/23 03:11 0 MLS/HR Vital Signs/I&O 03/24/23 03/24/23 03/24/23 03/24/23 02:39 02:47 04:35 04:45 Temp 36.9 Pulse 66 Resp 18 B/P (MAP) 118/74 (89) Pulse Ox 90 96 94 90 O2 Delivery Room Air Nasal Cannula Nasal Cannula Nasal Cannula O2 Flow Rate 3.00 3.00 3.00 Capillary Refill : Less Than 3 Seconds Blood Pressure Mean: 89 Progress Note : Progress Note Seen and evaluated. CT of the head ordered. Chest x-ray ordered. IV ordered with normal saline 1 500 mL bolus. Labs ordered including UA, CBC, CMP and ABG. Monitor patient. Differential diagnosis includes polypharmacy, dehydration, electrolyte abnormality, COPD exacerbation, hypercarbia 0320: ABG reviewed. pH is normal but CO2 is slightly elevated. UA evaluated and shows slight concentration with contamination with squamous cells at 25-50. Labs delayed due to difficult IV stick. 0357: CBC shows normal white count and normal hemoglobin with normal platelets. Chemistry grossly normal with normal renal function and LFTs. CRP slightly elevated at 1.39. Monitor patient. 0417: Chest x-ray shows no acute infiltrate. CT of the head shows no acute intracranial hemorrhage on my interpretation pending radiology report. Patient is requiring 3 L O2 via nasal cannula. We will go ahead and initiate DuoNeb and give Decadron 10 mg IV. 0440: I have added 3 more albuterol nebulizer treatments for persistence of hypoxia and concerns of COPD exacerbation. Monitor patient. 0602: Patient is doing better but is still requiring oxygen and is not prescribed that currently. I do believe she has COPD exacerbation as labs do not indicate infectious process and chest x-ray is clear. I did discuss the case with Dr. De Dios, on-call hospitalist for [facility] and she accepts patient for admission, observation status and will continue steroids and nebulizer treatments as needed as well as oxygen. This was discussed with patient who agrees with plan. Patient is doing better now with mentation and breathing. Diagnostic Imaging Diagonstic Imaging: Xray Plain Films/CT/US/NM/MRI: chest Comments No acute infiltrate on my interpretation Reviewed: Reviewed by Me Diagonstic Imaging: CT Plain Films/CT/US/NM/MRI: head Comments No acute findings per radiology report. Reviewed: Reviewed [place] Study, Reviewed by Me Departure Communication (Admissions) Time/Spoke to Admitting Phy: 06:02 Impression Primary Impression: COPD (chronic obstructive pulmonary disease) Qualified Codes: J44.1 - Chronic obstructive pulmonary disease with (acute) exacerbation Additional Impression: Hypoxia Disposition: ADMITTED INPATIENT Condition: Stable Admissions Decision to Admit Reason: Admit from ER (General) Decision to Admit/Date: March 24, 2023 Time/Decision to Admit Time: 06:02 Departure-Patient Inst. Referrals: FAIZAN CERON (PCP/Family) Primary Care Physician JORDAN FLETCHER MD March 24, 2023 03:24
[2023-03-24 03:28] LABS: BASOPHILS # (AUTO) 0.1 10^3/uL (0.0-0.1); BASOPHILS % (AUTO) 1 % (0-10); EOSINOPHILS % (AUTO) 0 % (0-10); HEMATOCRIT 41 % (35-52); HEMOGLOBIN 13.4 g/dL (11.5-16.0); LYMPHOCYTES # (AUTO) 2.1 10^3/uL (1.0-4.0); LYMPHOCYTES % (AUTO) 24 % (12-44); MEAN CORPUSCULAR HEMOGLOBIN 30 pg (25-34); MEAN CORPUSCULAR HGB CONC 33 g/dL (32-36); MEAN CORPUSCULAR VOLUME 92 fL (80-99); MEAN PLATELET VOLUME 9.1 fL (9.0-12.2); MONOCYTES % (AUTO) 11 % (0-12); NEUTROPHILS # (AUTO) 5.3 10^3/uL (1.8-7.8); NEUTROPHILS % (AUTO) 63 % (42-75); PLATELET COUNT 300 10^3/uL (130-400); WHITE BLOOD COUNT 8.5 10^3/uL (4.3-11.0)
[2023-03-24 03:38] LABS: ALBUMIN 3.5 GM/DL (3.2-4.5)
[2023-03-24 03:39] LABS: CALCIUM 9.1 MG/DL (8.5-10.1)
[2023-03-24 03:40] LABS: TOTAL PROTEIN 6.7 GM/DL (6.4-8.2)
[2023-03-24 03:42] LABS: BILIRUBIN,TOTAL 0.2 MG/DL (0.1-1.0)
[2023-03-24 03:44] LABS: CREATININE SERUM 0.69 MG/DL (0.60-1.30)
[2023-03-24] MEDS ORDERED: RT-ALBUTEROL/IPRATROPIUM 3 ML (DUONEB) VIAL INH ONE (04:30)
[2023-03-24] MEDS ORDERED: RT-ALBUTEROL SULF 2.5 MG/3 ML PRE-MIX VIAL INH STA (04:39)
--- NOTE | 2023-03-24 06:18 | History & Physical-Hospitalist ---
History of Present Illness HPI/Chief Complaint CC: Acute on chronic respiratory failure HPI: This is a 57yoWF known to me who presented to the ER with dyspnea. She has a h/o COPD with continued smoking. IV steroids given in ER and Nebs and she feels better. Home meds restarted for psych issues. No pain reported. Source: patient Exam Limitations: no limitations Date Seen 03/24/23 Time Seen by a Provider: 11:30 Attending Physician Bam Gracia PCP Admitting Physician: Attending Physician: Referring Physician Date of Admission Home Medications & Allergies Home Medications Reviewed patient Home Medication Reconciliation performed by pharmacy medication reconciliations air sealing technician and/or nursing. Patients Allergies have been reviewed. Allergies Allergies Coded Allergies No Known Drug Allergies (Unverified11/26/22) Past Qzxiylf-Sjxoqj-Fwujbx Hx Patient Social History Marrital Status: Employed/Student: retired Tobacco Use?: Yes Smoking Status: Current Everyday Smoker Substance use?: Yes Substance type: Marijuana Alcohol Use?: No Immunizations Up To Date First/Initial COVID19 Vaccinat: 2020 Second COVID19 Vaccination Brandon: 2020 Tetanus Booster (TDap): More Than 5 Years Hepatitis A: Yes Hepatitis B: Yes Current Status Communicates: Verbally Primary Language: Andorran Preferred Spoken Language: Andorran Past Medical History COPD Neuropathy 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 Anxiety, Bipolar, Depression Blood Disorders: No PMHx: Chronic pain COPD Bipolar disorder Cognitive dysfunction- seen by Neurology and started on donepizil which she reports helps very well Attention deficit HLD SurgHx: 5 back surgeries Neck surgery Right meniscus surgery Left bunionectomy Left shoulder arthroscopy Epidural injections Family Medical History Reviewed Nursing Family Hx Heart Disease, COPD, Diabetes, Psychiatric Problems, Stroke, Other Conditions/Hx Review of Systems Constitutional: see HPI Respiratory: dyspnea on exertion, short of breath, wheezing Physical Exam Physical Exam Vital Signs Vital Signs - First Documented 03/24/23 03/24/23 03/24/23 02:39 02:47 07:56 Temp 36.9 Pulse 66 Resp 18 B/P (MAP) 118/74 (89) Pulse Ox 90 O2 Delivery Room Air O2 Flow Rate 3.00 FiO2 21 Capillary Refill : Less Than 3 Seconds Height, Weight, BMI Height: '" Weight: lbs. oz. kg; 35.00 BMI Method: General Appearance: No Apparent Distress, Anxious, Chronically ill Eyes: Right Eye Normal Inspection, Right Eye PERRL HEENT: PERRL/EOMI, Normal ENT Inspection, Pharynx Normal, Moist Mucous Membranes Neck: Full Range of Motion, Normal Inspection, Non Tender Respiratory: Chest Non Tender, Lungs Clear, No Accessory Muscle Use, No Respiratory Distress, Decreased Breath Sounds, Wheezing Cardiovascular: Regular Rate, Rhythm, No Edema, No Gallop, No JVD, No Murmur, Normal Peripheral Pulses Gastrointestinal: Normal Bowel Sounds, No Organomegaly, No Pulsatile Mass, Non Tender, Soft Back: Normal Inspection, No CVA Tenderness, No Vertebral Tenderness Extremity: Normal Capillary Refill, Normal Inspection, Normal Range of Motion, Non Tender, No Calf Tenderness, No Pedal Edema Neurologic/Psychiatric: Alert, Oriented x3, No Motor/Sensory Deficits, Normal Mood/Affect Skin: Normal Color, Warm/Dry Lymphatic: No Adenopathy Results Results/Procedures Labs Laboratory Tests 03/24/23 03:23 Patient resulted labs reviewed. Assessment/Plan Admission Diagnosis Assessment: Acute on chronic respiratory failure AECOPD Smoker Psych conditions Plan: Monitor closely IV steroids Nebs O2 Admission Status: Observation EZ DE DIOS DO March 24, 2023 06:18
--- NOTE | 2023-03-24 06:29 | Diagnostic Imaging Report ---
PROCEDURE: CT head without contrast. TECHNIQUE: Multiple contiguous axial images were obtained through the brain without the use of intravenous contrast. Auto Exposure Controls were utilized during the CT exam to meet ALARA standards for radiation dose reduction. INDICATION: Altered mental status. Fall. COMPARISON: 09/15/2022. FINDINGS: No intracranial hemorrhage, mass effect, hydrocephalus or extra-axial fluid collections. No territorial infarction. Osseous structures are intact. Mild mucosal thickening in the left maxillary sinus. Mastoids are clear. IMPRESSION: No acute intracranial CT findings. Agree with preliminary interpretation. Dictated by: Dictated on workstation # [id number]
--- NOTE | 2023-03-24 06:32 | Diagnostic Imaging Report ---
INDICATION: Chest pain. Comparison is made with prior examination of 01/16/2023. FINDINGS: The heart size, mediastinal configuration, and pulmonary vascularity are within normal limits. There is no pleural effusion, pneumothorax, or pneumonia. The osseous structures are unremarkable. IMPRESSION: No acute cardiopulmonary abnormality. Dictated by: Dictated on workstation # [id number]
[2023-03-24] MEDS ORDERED: diphenhydrAMINE 25 MG TAB (BENADRYL) PO PRN (07:00)
[2023-03-24] MEDS ORDERED: BISACODYL 10 MG SUPP (DULCOLAX) PR PRN (07:00)
[2023-03-24] MEDS ORDERED: diphenhydrAMINE 50 MG/ML INJ (BENADRYL) IVP PRN (07:00)
[2023-03-24] MEDS ORDERED: ONDANSETRON 4 MG (ZOFRAN) ORAL DISSOLVE TAB PO PRN (07:00)
[2023-03-24] MEDS ORDERED: ONDANSETRON 4 MG/2 ML (SDV) Z0FRAN IV PRN (07:00)
[2023-03-24] MEDS ORDERED: HYDROmorphone 2 MG/ML VIAL (DILAUDID) IV PRN (07:00)
[2023-03-24] MEDS ORDERED: MILK OF MAGNESIA 400 MG/5 ML 30 ML UDC PO PRN (07:00)
[2023-03-24] MEDS ORDERED: LORazepam INJ 2 MG/ML (ATIVAN) VIAL IVP PRN (07:00)
[2023-03-24] MEDS ORDERED: CALCIUM CARBONATE 500 MG (TUMS) TAB.CHEW PO PRN (07:00)
[2023-03-24] MEDS ORDERED: polyethylene glycoL POWDER 17 GM (MIRALAX) PACK PO PRN (07:00)
[2023-03-24] MEDS ORDERED: MELATONIN 3 MG TABLET PO PRN (07:00)
[2023-03-24] MEDS ORDERED: ANTACID SUSP 30 ML UDC (MYLANTA) PO PRN (07:00)
[2023-03-24] MEDS ORDERED: ACETAMINOPHEN 325 MG TABLET PO PRN (07:00)
[2023-03-24] MEDS ORDERED: LACTULOSE SYRUP 10GM/15ML (ENULOSE) 30ML UDC PO PRN (07:00)
[2023-03-24 07:10] VITALS: BP 110/65
[2023-03-24] MEDS: DOCUSATE SODIUM 100 MG (COLACE) CAP PO SCH ×2 (07:48→20:58)
[2023-03-24] MEDS: ENOXAPARIN 40 MG/0.4 ML (LOVENOX) SYR SC SCH (07:48)
[2023-03-24] MEDS: SENNOSIDES 8.6 MG (SENOKOT) TAB PO SCH ×2 (07:49→20:58)
[2023-03-24 07:56] VITALS: BP 118/74
[2023-03-24] MEDS ORDERED: RT-ALBUTEROL SULF 2.5 MG/3 ML PRE-MIX VIAL INH SCH (09:00)
[2023-03-24] MEDS: RT-ALBUTEROL/IPRATROPIUM 3 ML (DUONEB) VIAL INH SCH ×3 (09:52→21:40)
[2023-03-24] MEDS ORDERED: RT-ALBUTEROL SULF 2.5 MG/3 ML PRE-MIX VIAL INH PRN (11:00)
[2023-03-24] MEDS ORDERED: RT-ALBUTEROL/IPRATROPIUM 3 ML (DUONEB) VIAL INH PRN (11:00)
[2023-03-24 11:07] VITALS: BP 110/64
[2023-03-24] MEDS: inSUlin ASPART (NovoLOG) 1 UNIT/0.01 ML (CHARGE PER UNIT) SC SCH ×3 (11:34→20:58)
[2023-03-24] MEDS ORDERED: NON-FORMULARY MEDICATION 1 EA EA (Aspirin/Acetaminophen/Caffeine (Excedrin Migraine Caplet PO PRN (12:15)
[2023-03-24] MEDS: GABAPENTIN 400 MG (NEURONTIN) CAP PO SCH ×2 (12:15→20:58)
[2023-03-24] MEDS ORDERED: NON-FORMULARY MEDICATION 1 EA EA (Oxycodone HCl 10 MG) PO PRN (12:15)
[2023-03-24] MEDS ORDERED: ASPIRIN 325 MG (5 GR) TABLET PO PRN (12:30)
[2023-03-24] MEDS ORDERED: ACETAMINOPHEN 500 MG TAB (TYLENOL) PO PRN (12:30)
[2023-03-24 15:51] VITALS: BP 102/66
[2023-03-24] MEDS ORDERED: DONEPEZIL 10 MG (ARICEPT) TAB PO SCH (18:00)
[2023-03-24] MEDS ORDERED: QUETIAPINE FUMARATE 800 MG PO SCH (18:00)
[2023-03-24] MEDS ORDERED: QUEtiapine 200 MG (SEROquel) TAB IMMEDIATE RELEASE PO SCH (18:00)
[2023-03-24 20:51] VITALS: BP 102/68
[2023-03-24] MEDS: LORazepam 0.5 MG (ATIVAN) TABLET PO PRN (20:58)
[2023-03-24] MEDS: BACLOFEN 10 MG (LIORESAL) TAB PO SCH (20:58)
[2023-03-25 00:20] VITALS: BP 109/66
[2023-03-25] MEDS: RT-ALBUTEROL/IPRATROPIUM 3 ML (DUONEB) VIAL INH SCH ×2 (01:51→10:54)
[2023-03-25 04:35] VITALS: BP 112/70
[2023-03-25 05:02] LABS: BASOPHILS % (AUTO) 0 % (0-10); EOSINOPHILS % (AUTO) 0 % (0-10); HEMATOCRIT 38 % (35-52); HEMOGLOBIN 12.9 g/dL (11.5-16.0); LYMPHOCYTES # (AUTO) 2.3 10^3/uL (1.0-4.0); LYMPHOCYTES % (AUTO) 23 % (12-44); MEAN CORPUSCULAR HEMOGLOBIN 31 pg (25-34); MEAN CORPUSCULAR HGB CONC 34 g/dL (32-36); MEAN CORPUSCULAR VOLUME 92 fL (80-99); MONOCYTES % (AUTO) 9 % (0-12); NEUTROPHILS # (AUTO) 6.9 10^3/uL (1.8-7.8); NEUTROPHILS % (AUTO) 67 % (42-75); PLATELET COUNT 309 10^3/uL (130-400); WHITE BLOOD COUNT 10.3 10^3/uL (4.3-11.0)
[2023-03-25 05:31] LABS: ALBUMIN 3.4 GM/DL (3.2-4.5); BILIRUBIN,TOTAL 0.2 MG/DL (0.1-1.0); CALCIUM 8.9 MG/DL (8.5-10.1); CREATININE SERUM 0.64 MG/DL (0.60-1.30); POTASSIUM 3.9 MMOL/L (3.6-5.0); TOTAL PROTEIN 6.6 GM/DL (6.4-8.2)
[2023-03-25] MEDS: ENOXAPARIN 40 MG/0.4 ML (LOVENOX) SYR SC SCH (05:32)
[2023-03-25] MEDS: inSUlin ASPART (NovoLOG) 1 UNIT/0.01 ML (CHARGE PER UNIT) SC SCH ×2 (05:32→10:55)
[2023-03-25] MEDS: DOCUSATE SODIUM 100 MG (COLACE) CAP PO SCH (07:54)
[2023-03-25] MEDS: SENNOSIDES 8.6 MG (SENOKOT) TAB PO SCH (07:54)
[2023-03-25] MEDS: GABAPENTIN 400 MG (NEURONTIN) CAP PO SCH (07:54)
[2023-03-25] MEDS: BACLOFEN 10 MG (LIORESAL) TAB PO SCH (07:54)
[2023-03-25 07:57] VITALS: BP 126/67
[2023-03-25] MEDS: LORazepam 0.5 MG (ATIVAN) TABLET PO PRN (07:59)
[2023-03-25] MEDS ORDERED: NON-FORMULARY MEDICATION 1 EA EA (Simvastatin 40 MG) PO SCH (09:00)
[2023-03-25] MEDS ORDERED: ASPIRIN E.C. 81 MG (ECOTRIN) TAB PO SCH (09:00)
[2023-03-25] MEDS ORDERED: IPRA3AMP31 INH (11:39)
[2023-03-25] MEDS ORDERED: PRED10TA22 PO (11:39)
--- NOTE | 2023-03-25 11:40 | Discharge Summary ---
Discharge Summary Hospital Course Was the Problem List Reviewed?: Yes Problems/Dx: (1) COPD (chronic obstructive pulmonary disease) Status: Chronic Qualifiers: Qualified Codes: J44.1 - Chronic obstructive pulmonary disease with (acute) exacerbation (2) Bipolar disorder Status: Chronic Hospital Course Date of Admission: March 24, 2023 at 06:36 Admission Diagnosis : Family Physician/Provider: Bam Gracia Date of Discharge: 03/25/23 Discharge Diagnosis: [ ] Hospital Course: Uneventful overnight course after she was admitted for AECOPD placed on IV steroids and nebs and O2 and overall improved and smoking cessation was counseled and no home O2 needed and she was DC. Labs and Pending Lab Test: Laboratory Tests 03/24/23 17:13: Glucometer 136H 03/24/23 20:48: Glucometer 159H 03/25/23 04:48: White Blood Count 10.3, Red Blood Count 4.17, Hemoglobin 12.9, Hematocrit 38, Mean Corpuscular Volume 92, Mean Corpuscular Hemoglobin 31, Mean Corpuscular Hemoglobin Concent 34, Red Cell Distribution Width 15.9H, Platelet Count 309, Mean Platelet Volume 9.0, Immature Granulocyte % (Auto) 1, Neutrophils (%) (Aut o) 67, Lymphocytes (%) (Auto) 23, Monocytes (%) (Auto) 9, Eosinophils (%) (Auto) 0, Basophils (%) (Auto) 0, Neutrophils # (Auto) 6.9, Lymphocytes # (Auto) 2.3, Monocytes # (Auto) 1.0, Eosinophils # (Auto) 0.0, Basophils # (Auto) 0.0, Immature Granulocyte # (Auto) 0.1, Sodium Level 139, Potassium Level 3.9, Chloride Level 107, Carbon Dioxide Level 25, Anion Gap 7, Blood Urea Nitrogen 13, Creatinine 0.64, Estimat Glomerular Filtration Rate 102, BUN/Creatinine Ratio 20, Glucose Level 108H, Calcium Level 8.9, Corrected Calcium 9.4, Total Bilirubin 0.2, Aspartate Amino Transf (AST/SGOT) 12, Alanine Aminotransferase ( ALT/SGPT) 9, Alkaline Phosphatase 71, Total Protein 6.6, Albumin 3.4 03/25/23 05:24: Glucometer 102 03/25/23 10:50: Glucometer 136H Home Meds Active Prednisone 10 Mg Tab.ds.pk 10 Mg PO DAILY Take 6 tabs(60mg)daily,decrease by 1 tab(10MG)daily. Iprat-Albut 0.5-3(2.5) mg/3 ml (Ipratropium/Albuterol Sulfate) 0.5 Mg-3 Mg (2.5 Mg Base)/3 Ml Ampul.neb 3 Ml INH RTQ6HR Reported Donepezil HCl 10 Mg Tablet 10 Mg PO 1800 LAST FILLED 10-13-2022 #30/30 DAY SUPPLY Excedrin Migraine Caplet (Aspirin/Acetaminophen/Caffeine) 250 Mg-250 Mg-65 Mg Tablet 2 Each PO Q6-8HR PRN Simvastatin 40 Mg Tablet 40 Mg PO DAILY Aspirin EC (Aspirin) 81 Mg Tablet.dr 81 Mg PO DAILY Quetiapine Fumarate 400 Mg Tablet 800 Mg PO 1800 TAKES 2 (400MG) TABS Gabapentin 400 Mg Capsule 400 Mg PO TID Baclofen 10 Mg Tablet 10 Mg PO BID Ventolin Hfa (Albuterol Sulfate) 90 Mcg Hfa.aer.ad 2 Puff INH Q4H PRN Oxycodone HCl 10 Mg Tablet 10 Mg PO Q6H PRN Assessment/Pt Instructions PCP 1 week Discharge Planning: <30 minutes discharge planning Discharge Instructions Discharge Diet: No Restrictions Discharge Physical Examination Vital Signs Vital Signs Date Time Temp Pulse Resp B/P (MAP) Pulse Ox O2 Delivery O2 Flow Rate FiO2 03/25/23 10:54 93 Nasal Cannula 2.00 03/25/23 07:57 36.2 78 18 126/67 (86) 03/24/23 07:56 21 General Appearance: No Apparent Distress, WD/WN, Chronically ill Allergies: Coded Allergies: No Known Drug Allergies (Unverified , 11/26/22) Discharge Summary Date of Admission March 24, 2023 at 06:36 Date of Discharge Discharge Date: March 25, 2023 Admission Diagnosis Assessment: Acute on chronic respiratory failure AECOPD Smoker Psych conditions Plan: Monitor closely IV steroids Nebs O2 EZ DE DIOS DO March 25, 2023 11:40
[2023-03-25 11:44] VITALS: BP 122/75
== END 2023-03-25 11:37 | disposition home or self-care (01) ==
LOC: EDUNIT# 02:36 → ER 02:37 → UNDOADMOB 06:36 → 4TH 06:36 → UNDODISOB 03-25 11:37
PROVIDERS: ADMIT Internal Medicine; ATTEND Internal Medicine
DX: J44.1 Chronic obstructive pulmonary disease with (acute) exacerbation (principal); J96.21 Acute and chronic respiratory failure with hypoxia; F31.9 Bipolar disorder, unspecified; F17.210 Nicotine dependence, cigarettes, uncomplicated; F12.90 Cannabis use, unspecified, uncomplicated
CPT/HCPCS: 70450; 71045; 80053 ×2; 81000; 82805; 82947 ×2; 85025 ×2; 86141; 94640 ×2; 94760 ×2; 96372 ×2; 96376 ×2; 99285; G0378; 36415

== ENCOUNTER → 2023-04-24 | Outpatient (CLI) | payer MEDICARE, MEDICAID ==
[~2023-04-24] MED LIST changes: +IPRA3AMP31 INH
--- NOTE | 2023-04-24 10:22 | Diagnostic Imaging Report ---
CLINICAL INDICATIONS: Patient with chronic C-spine pain with history of previous spine surgery in 2010. EXAM: MRI of the cervical spine performed without IV contrast. Sequences include sagittal T2, sagittal T1, sagittal STIR, and axial T2. COMPARISON: None. FINDINGS: Again seen postop change to the cervical spine with C3-C4 through C7 anterior cervical discectomy fusion with susceptibility hardware artifact adjacent to the region. Prior study shows solid bony bridging/fusion at the C5-C7 level. It is difficult to determine if there is fusion at the C4-C5 level. There are degenerative spurs anteriorly involving the upper and lower cervical spine. Limited visualization of posterior fossa is unremarkable. There is a localized area of cord deformity seen at the C3-C4 level. There is no abnormal cord signal. There is no significant paraspinal soft tissue abnormality. C1-C2: There are degenerative spurs anteriorly. There is no significant central canal narrowing. C2-C3: There is severe left facet arthropathy and mild right facet arthropathy. There is mild left neural foramen narrowing. There is no significant right neural foramen narrowing. There is ligament flavum buckling. There is mild central canal narrowing. C3-C4: There is diffuse disk bulge with bilateral uncinate spurs. There is severe left facet arthropathy/hypertrophy and mild right facet arthropathy. There is severe left neural foramen narrowing and moderate right neural foramen narrowing. There is moderate to severe central canal stenosis. C4-C5: There are bilateral uncinate spurs. There is mild left facet arthropathy. There is mild bilateral neural foramen narrowing. There is moderate central canal stenosis. C5-C6: There is no significant central spinal canal or neural foramen narrowing. C6-C7: There is mild bilateral facet arthropathy. There is mild left neural foramen narrowing. There is no significant right neural foramen narrowing. There is no significant central canal narrowing. C7-T1: There is grade 1 anterolisthesis of C7 on T1 again seen. There is severe left facet arthropathy/hypertrophy of minimal reversibility. There is moderate left neural foramen narrowing and no significant right neural foramen narrowing. There is no significant central canal narrowing. IMPRESSION: 1: There is C3-C7 anterior cervical discectomy fusion. Unknown if this fusion at the C4-C5 level. CT scan would better evaluate if there is concern for pseudoarthrosis. Prior CT scan showed fusion of C5-C7. 2: There is cervical spine degenerative disk disease which is worse at the C3-C4 and C4-C5 levels, as described above. Dictated by: Dictated on workstation # [id number]
== END ==
LOC: RAD 07:18
PROVIDERS: ATTEND Pain Medicine Interventional Pain Medicine
DX: M50.121 Cervical disc disorder at C4-C5 level with radiculopathy (principal); M50.11 Cervical disc disorder with radiculopathy, high cervical region; M46.02 Spinal enthesopathy, cervical region; M47.22 Other spondylosis with radiculopathy, cervical region; M48.02 Spinal stenosis, cervical region; M43.13 Spondylolisthesis, cervicothoracic region; Z98.1 Arthrodesis status
CPT/HCPCS: 72141

== ENCOUNTER → 2023-07-17 | Outpatient (CLI) | payer MEDICARE, MEDICAID ==
[~2023-07-17] MED LIST changes: -POTA10CA44 PO; +POTA10CA84 PO
--- NOTE | 2023-07-17 12:39 | Diagnostic Imaging Report ---
PROCEDURE: MRI lumbar spine. TECHNIQUE: Multiplanar, multisequence MRI of the lumbar spine was performed without contrast. INDICATION: Back pain. History of multiple lumbar spine surgeries. COMPARISON: None. FINDINGS: There are 5 lumbar-type vertebral bodies for the purposes of this report. Severe left apex lumbar curvature. Modic type I degenerative endplate changes in the superior endplate of L2. Vertebral body heights are preserved. Interbody fusions at L2 through L4. There appear to be abandoned pedicle screw tracts in the L3 and L4 vertebral bodies. Laminectomies at L2 through L5. No abnormal signal is seen in the conus which terminates at L2. Normal morphology of the cauda equina. The visualized pelvis and paravertebral soft tissues demonstrate no acute findings. L1-L2: Facet arthropathy and broad-based disc bulging result in mild spinal canal and bilateral lateral recess narrowing. Moderate left and severe right neuroforaminal narrowing. L2-L3: Spinal canal is decompressed well. Moderate bilateral neuroforaminal narrowing. L3-L4: Spinal canal is decompressed well. Moderate right neuroforaminal narrowing. L4-L5: Spinal canal is decompressed well. Moderate bilateral neuroforaminal narrowing primarily due to facet proliferation and scoliosis. L5-S1: Spinal canal is decompressed well. Disc space height loss and facet proliferation result in moderate right and mild left neuroforaminal narrowing. IMPRESSION: 1. Severe left apex scoliosis. 2. Interbody fusions at L2-L4 and laminectomies at L2-L5. 3. No high-grade spinal canal stenosis. 4. Scattered high-grade neuroforaminal narrowing detailed above. 5. Modic type I degenerative endplate changes in the superior endplate of L2. No acute osseous findings. Dictated by: Dictated on workstation # [id number]
== END ==
LOC: RAD 09:42
PROVIDERS: ATTEND Pain Medicine Interventional Pain Medicine
DX: M47.816 Spondylosis without myelopathy or radiculopathy, lumbar region (principal); M51.26 Other intervertebral disc displacement, lumbar region; M48.061 Spinal stenosis, lumbar region without neurogenic claudication; Z98.1 Arthrodesis status
CPT/HCPCS: 72148